=== PATIENT | male | born 1960 ===

== ENCOUNTER 2016-09-04 23:11 | Inpatient (IN) | payer MEDICAID, OTHER ==
--- NOTE | 2016-09-05 00:23 | ED PDOC ---
Arrival/HPI <Brady Parks - Last Filed: 09/05/16 04:23> - General Historian: Patient, Family <Martine Cano - Last Filed: 09/05/16 04:35> - General Chief Complaint: Chest Pain Time Seen by Provider: 09/05/16 00:15 - History of Present Illness Narrative History of Present Illness (Text): 09/05/16 00:29 Patient is a 56 year old with pmh of htn, hld presenting with sob and cp for 2 days. Patient recently immigrated from [facility]. Patient ins unable to described the chest pain. Denies radiation to the arm or back. States the sob is there regardless of his position, accompanied with dry cough. patient states he gets sob when he ambulates as well. Patient denies headache, dizziness , n/v/v. Patient denies fever or chills. Denies h/o CAD, no h/o stress tests or cardiac caths. 09/05/16 00:41 (Martine Cano) Past Medical History - Provider Review Nursing Documentation Reviewed: Yes - Travel History Have you recently traveled outside [place] w/in the past 3 mons?: Yes - Infectious Disease Hx of Infectious Diseases: None - Tetanus Immunization Tetanus Immunization: Unknown - Cardiac Hx Cardiac Disorders: Yes Hx Hypertension: Yes - Psychiatric Hx Substance Use: No (denies) <Martine Cano - Last Filed: 09/05/16 04:35> Family/Social History - Physician Review Nursing Documentation Reviewed: Yes Family/Social History: Hypertension Smoking Status: Former Smoker Hx Alcohol Use: No (denies) Hx Substance Use: No (denies) <Martine Cano - Last Filed: 09/05/16 04:35> Allergies/Home Meds <Brady Parks - Last Filed: 09/05/16 04:23> <Martine Cano - Last Filed: 09/05/16 04:35> Allergies/Adverse Reactions: Allergies No Known Allergies Allergy (Verified 09/04/16 23:27) Home Medications: Home Meds Medication Instructions Recorded Confirmed Unobtainable 09/04/16 09/04/16 Review of Systems - Review of Systems Constitutional: Fatigue. absent: Fevers, Night Sweats Eyes: absent: Vision Changes ENT: Normal Respiratory: SOB, Cough. absent: Sputum, Wheezing Cardiovascular: Chest Pain, Palpitations. absent: Edema, Calf Pain, Syncope Gastrointestinal: Normal. absent: Constipation, Diarrhea, Nausea, Vomiting Genitourinary Male: Normal Musculoskeletal: Normal Skin: Normal Neurological: Normal Endocrine: Normal Hemo/Lymphatic: Normal Psychiatric: Normal <Martine Cano - Last Filed: 09/05/16 04:35> Physical Exam Vital Signs Reviewed: Yes Temperature: Afebrile Blood Pressure: Hypertensive Pulse: Tachycardic Respiratory Rate: Normal Appearance: Positive for: Non-Toxic, Comfortable, Ill-Appearing Pain Distress: Mild Mental Status: Positive for: Alert and Oriented X 3 - Systems Exam Head: Present: Atraumatic, Normocephalic Pupils: Present: PERRL Extroacular Muscles: Present: EOMI Conjunctiva: Present: Normal Mouth: Present: Dry Neck: Present: Normal Range of Motion Respiratory/Chest: Present: Rales. No: Respiratory Distress, Accessory Muscle Use, Wheezes, Retracting, Rhonchi, Tachypneic, Tender to Palpation Cardiovascular: Present: Regular Rate and Rhythm, Normal S1, S2, Tachycardic, Gallop. No: Murmurs, Rub, Muffled Abdomen: Present: Normal Bowel Sounds. No: Tenderness, Distention, Rebound Upper Extremity: Present: Normal Inspection. No: Edema Lower Extremity: Present: Normal Inspection. No: Edema Neurological: Present: GCS=15 Skin: Present: Warm, Dry, Normal Color. No: Rashes Psychiatric: Present: Alert, Oriented x 3, Normal Insight, Normal Concentration <Martine Cano - Last Filed: 09/05/16 04:35> Vital Signs Temp Pulse Pulse Resp BP BP Pulse Ox 09/05/16 02:24 97.6 F 91 H 16 125/89 100 09/05/16 02:20 133/98 H 09/05/16 00:52 94 H 16 135/96 H 93 L 09/04/16 23:30 89 135/96 H 09/04/16 23:27 97.7 F 100 H 18 136/105 H 95 Medical Decision Making - Lab Interpretations I have reviewed the lab results: Yes - EKG Interpretation Interpreted by ED Physician: Yes Type: 12 lead EKG <Brady Parks - Last Filed: 09/05/16 04:23> Re-evaluation Time: 01:20 Reassessment Condition: Re-examined - Lab Interpretations I have reviewed the lab results: Yes (d-dimer of 1.81, probnp 2030) - EKG Interpretation Interpreted by ED Physician: Yes Type: 12 lead EKG <Martine Cano - Last Filed: 09/05/16 04:35> ED Course and Treatment: Impression: Pt seen and evaluated with certified ophthalmic medical technician. Pt, whose past medical history includes hypertension and hyperlipidemia, presented for shortness of breath, dry cough, and chest pain for 2 days. Pt reports he recently immigrated from the [place]. Aware and agree with HPI, clinical findings, plan, and management. Plan: -- EKG -- CXR -- Labs, cardiac enzymes, BNP, TSH, D-dimer -- Urinalysis -- Aspirin -- Reassess and disposition (Brady Parks) 09/05/16 00:47 Patient is a 56 year old with pmh of htn, hld presenting with sob and cp for 2 days. Differentials include - ACS, uncontrolled hypertension, sepsis, chf , PE Plan: will obtain cbc, cmp, d-dimer, tsh, chest x-ray, ekg will give asa and reevaluate discussed with Dr Parks. 09/05/16 00:48 D-dimer of 1.[address] angio to rule out PE. Pro bnp of 2030, with curly b line on chest x-ray, will give stat dose 40 mg ivp lasix. will reevaluate and dispo. 09/05/16 02:18 09/05/16 02:20 Patient reexamined, reports he is feeling much better after the lasix. CTPE is inconclusive for PE. Will give 25 mg po of Lopressor for tachycardia. 09/05/16 04:30 Dr Parks spoke to Dr Hill and the certified ophthalmic medical technician. Patient to be admitted for chf, and chest pain. (Martine Cano) - Lab Interpretations Lab Results: 09/04/16 22:48 09/04/16 22:48 Lab Results 09/05/16 02:04: Urine Color Yellow, Urine Appearance Sl cloudy, Urine pH 6.0, Ur Specific Blue >= 1.030, Urine Protein Trace H, Urine Glucose (UA) Negative , Urine Ketones Negative, Urine Blood Trace-lysed H, Urine Nitrate Negative, Urine Bilirubin Negative, Urine Urobilinogen 0.2, Ur Leukocyte Esterase Negative , Urine RBC 0 - 2, Urine WBC 0 - 2, Ur Epithelial Cells 0 - 2 09/04/16 22:48: TSH 3rd Generation 1.83 09/04/16 22:48: D-Dimer, Quantitative 1.81 H 09/04/16 22:48: Sodium 137, Potassium 4.1, Chloride 107, Carbon Dioxide 21, Anion Gap 13, BUN 26 H, Creatinine 1.1, Est GFR ( Amer) > 60, Est GFR ( Non-Af Amer) > 60, Random Glucose 101, Calcium 8.8, Total Bilirubin 0.9, AST 252 H, ALT 209 H, Alkaline Phosphatase 88, Lactate Dehydrogenase 1137 H, Total Creatine Kinase 986 H, CK-MB (CK-2) 2.9, CK-MB (CK-2) % Cancelled, Troponin I 0.02, NT-Pro-B Natriuret Pep 2030 H, Total Protein 6.2, Albumin 3.5, Globulin 2.7, Albumin/Globulin Ratio 1.3 09/04/16 22:48: WBC 7.6, RBC 4.27, Hgb 13.9 L, Hct 40.1 L, MCV 93.9, MCH 32.6, MCHC 34.7, RDW 13.0, Plt Count 245, MPV 11.5 H, Gran % 59.3, Lymph % (Auto) 31.8 , Wolfe % (Auto) 6.4 H, Eos % (Auto) 2.1, Baso % (Auto) 0.4, Gran # 4.48, Lymph # 2.4, Wolfe # 0.5, Eos # 0.2, Baso # 0.03 - RAD Interpretation Radiology Orders: 09/05/16 00:16 CHEST PORTABLE [RAD] Stat 09/05/16 01:51 ANGIO CHEST PE PROTOCOL [CT] Stat - EKG Interpretation EKG Interpretation (Text): 09/05/16 04:33 NSR with HR of 95 bmp, occasional pvcs, LVH, Q waves in leads II, III, AVF, ca/t r/o inferior infarct. (Martine Cano) - Medication Orders Current Medication Orders: Acetaminophen (Tylenol 325mg Tab) 650 mg PO Q6H PRN PRN Reason: Fever >100.4 F Atorvastatin Calcium (Lipitor) 40 mg PO DAILY NICOLE Famotidine (Pepcid) 20 mg PO BID NICOLE Ibuprofen (Motrin Tab) 600 mg PO Q6H PRN PRN Reason: Pain, Mild (1-3) Lisinopril (Zestril) 5 mg PO DAILY NICOLE Metoprolol Tartrate (Lopressor) 25 mg PO BID NICOLE Discontinued Medications Aspirin (Aspirin Chewable) 81 mg PO STAT STA Stop: 09/05/16 00:19 Last Admin: 09/05/16 00:52 Dose: 81 mg Furosemide (Lasix) 40 mg IVP STAT STA Stop: 09/05/16 01:52 Last Admin: 09/05/16 02:20 Dose: 40 mg Iodixanol (Visipaque 320 Mg/Ml 100 Ml) Confirm Administered Dose 100 ml IV .STK- MED ONE Stop: 09/05/16 02:15 Metoprolol Tartrate (Lopressor) 25 mg PO STAT STA Stop: 09/05/16 04:25 - PA / DISTRICT MANA[employer] / Resident Statement BRITT has reviewed & agrees with the documentation as recorded. BRITT has examined the patient and agrees with the treatment plan. <Brady Parks - Last Filed: 09/05/16 04:23> Disposition/Present on Arrival - Present on Arrival Any Indicators Present on Arrival: No History of DVT/PE: No History of Uncontrolled Diabetes: No Urinary Catheter: No History of Decub. Ulcer: No History Surgical Site Infection Following: None - Disposition Have Diagnosis and Disposition been Completed?: Yes Disposition Time: 04:24 Patient Plan: Observation <Brady Parks - Last Filed: 09/05/16 04:23> - Present on Arrival Any Indicators Present on Arrival: No History of DVT/PE: No History of Uncontrolled Diabetes: No Urinary Catheter: No History of Decub. Ulcer: No History Surgical Site Infection Following: None <Martine Cano - Last Filed: 09/05/16 04:35> - Disposition Diagnosis: Chest pain, CHF (congestive heart failure) Disposition: HOSPITALIZED Patient Problems: Current Active Problems Problem Status Onset Chest pain Acute CHF (congestive heart failure) Acute Condition: STABLE Discharge Instructions (ExitCare): Heart Failure (ED), Chest Pain (ED)
[2016-09-05 00:30] LABS: ADD MANUAL DIFF? NO
[2016-09-05 00:40] LABS: BASO # 0.03 K/mm3 (0.0-2.0); BASO % 0.4 % (0.0-3.0); EOS # 0.2 (0.0-0.7); EOS % 2.1 % (1.5-5.0); GRAN # 4.48 (1.4-6.5); GRAN % 59.3 % (50.0-68.0); HEMATOCRIT 40.1 % (42.0-52.0); LYMPH # 2.4 (1.2-3.4); LYMPH % 31.8 % (22.0-35.0); MEAN CELL VOLUME 93.9 fL (80.0-105.0); MEAN CORPUSCULAR HEMOGLOBIN 32.6 pg (25.0-35.0); MEAN CORPUSCULAR HGB CONC 34.7 g/dl (31.0-37.0); MEAN PLATELET VOLUME 11.5 fl (7.0-11.0); MONO # 0.5 (0.1-0.6); MONO % 6.4 % (1.0-6.0); PLATELET COUNT 245 10^3/uL (120.0-450.0); WHITE BLOOD COUNT 7.6 10^3/ul (4.5-11.0)
[2016-09-05 00:48] LABS: ALB/GLOB RATIO 1.3 (1.1-1.8); ALKALINE PHOSPHATASE 88 U/L (38-133); ALT/SGPT 209 U/L (7-56); AST/SGOT 252 U/L (15-59); BILIRUBIN,TOTAL 0.9 mg/dL (0.2-1.3); BLOOD UREA NITROGEN 26 mg/dL (7-21); CALCIUM 8.8 mg/dL (8.4-10.5); CARBON DIOXIDE 21 mmol/L (21-33); CHLORIDE 107 mmol/L (98-107); GFR AFRICAN-AMERICAN > 60; GLUCOSE,RANDOM 101 mg/dL (70-110); POTASSIUM 4.1 mmol/L (3.6-5.0); SODIUM 137 mmol/L (132-148); TOTAL PROTEIN 6.2 g/dL (5.8-8.3)
[2016-09-05 00:58] LABS: TROPONIN I 0.02 ng/mL
[2016-09-05] MEDS ORDERED: Iodixanol 320 MG/ML 100 ML BOTTLE IV ONE (02:14)
[2016-09-05 02:40] LABS: URINE BILIRUBIN NEGATIVE (NEGATIVE); URINE BLOOD TRACE-LYSED (NEGATIVE); URINE GLUCOSE (UA) NEGATIVE (NEGATIVE); URINE KETONE NEGATIVE (NEGATIVE); URINE LEUKOCYTE ESTERASE NEGATIVE Leu/uL (NEGATIVE); URINE PROTEIN TRACE mg/dL (<30 mg/dL); URINE UROBILINOGEN 0.2 E.U./dL (<1 E.U./dL)
[2016-09-05 02:44] LABS: URINE APPEARANCE SL CLOUDY (CLEAR); URINE COLOR YELLOW (YELLOW)
[2016-09-05 02:49] LABS: URINE EPITHELIAL CELLS 0 - 2 /hpf (0-5); URINE RBC 0 - 2 /hpf (0-2); URINE WBC 0 - 2 /hpf (0-6)
--- NOTE | 2016-09-05 04:10 | CT ---
EXAM: CT Angiography Chest With Intravenous Contrast CLINICAL HISTORY: 56 years old, male; Signs and symptoms; Shortness of breath; Additional info: SOB TECHNIQUE: Axial computed tomographic angiography images of the chest with intravenous contrast using pulmonary embolism protocol. This CT exam was performed using one or more of the following dose reduction techniques: automated exposure control, adjustment of the mA and/or kV according to patient size, and/or use of iterative reconstruction technique. MIP reconstructed images were created and reviewed. Coronal and sagittal reformatted images were created and reviewed. CONTRAST: 96 mL of VISI 320 administered intravenously. EXAM DATE/TIME: Exam ordered 09/05/2016 1:51 AM COMPARISON: DX - CHEST PORTABLE 09/05/2016 1:36:40 AM FINDINGS: Pulmonary arteries: Pulmonary arteries. No pulmonary embolism is seen to the level of the lobar pulmonary arterial branches bilaterally. The heterogeneous or decreased density of multiple segmental and subsegmental pulmonary arterial branches may reflect inadequate enhancement, or motion, flow, or partial voluming artifact rather than pulmonary emboli. In the right lower lobe pulmonary arteries, series 2 image 149, coronal series 602 image 81, there are stairstep artifacts which greatly limit evaluation, noting that there is suggestion of some luminal irregularity of some small peripheral vessels , findings which can be associated with pulmonary arterial hypertension or with a previous episode of emboli among other pathologies. Main pulmonary artery is 3.1 cm also in keeping with pulmonary arterial hypertension. Aorta: The study is performed in the pulmonary arterial phase and does not permit detailed evaluation for thoracic aortic dissection, there are no secondary findings of thoracic dissection and there is no evidence of thoracic aortic aneurysm. Lungs: There is asymmetric right slightly greater than left intralobular interstitial thickening, see for example series 4 image 42. There is bilateral groundglass opacity in the lower thorax involving the right middle lobe, right lower lobe, lingula and and left lower lobe, part of which may be related to artifacts from patient breathing as well as to possibly some air space disease. There is peribronchial cuffing on the right greater than on the left, see for example coronal image 62. Pleural space: There are small bilateral pleural effusions. There is a suggestion of fluid in the bilateral major fissures, fluid tracking in the right minor fissure. No pneumothorax. Heart: There is cardiomegaly. the left ventricle appears dilated with possibility of increased trabeculation, and there is reflux of intravenous contrast the hepatic veins which is a finding associated with right heart failure although noting that there is no evidence of right ventricular dilatation. This may be related to injection parameters. No significant pericardial effusion. Mediastinum: Air in the esophagus in keeping with reflux. Small hiatus hernia. Bones/joints: Probable vertebral hemangioma, no evidence of acute fracture. No dislocation. Soft tissues: Unremarkable. Lymph nodes: There is mediastinal adenopathy, see for example series 2 image 81 and adjacent, with left para-aortic nodes up to 13 mm short axis. Favor that there are also AP window region nodes. Right paratracheal nodes also appearing prominent. Kidneys and ureters: Upper abdomen shows perinephric stranding, please correlate for infection. Intraperitoneal space: Other findings: No previous CTs for comparison, if available please compare on site. IMPRESSION: Pulmonary arterial hypertension and cardiomegaly. Adenopathy. Bilateral pathology, right somewhat greater than left groundglass opacity and interstitial thickening, these are nonspecific findings with a broad differential. Please note that lung disease greatly limits evaluation for small nodules at this time. Within limits of the examination, no large or central embolus , noting limitations and possibility of some chronic pathology in the more peripheral vessels. Other as above. No previous CTs for comparison are available at this time, please compare on site.
--- NOTE | 2016-09-05 04:53 | CP.PCM.HP ---
Addendum entered and electronically signed by Angel Gutierrez DO 09/05/16 04:59: Anemia; new -f/u TIBC/Ferritin/B12/Folate Original Note: <Angel Gutierrez - Last Filed: 09/05/16 04:50> History of Present Illness - History of Present Illness History of Present Illness: CC: SOB This is a 56yo [place] Speaking [place] who is coming in for acute SOB. Patient states at baseline he gets extremely short of breath even just going to the bathroom, uses 2 pillows to sleep at night, and never wakes up in the middle of the night gasping for air. Patient cannot remember any of the meds he is taking and the daughter at bedside was urged to bring meds in so that we can reconcile them. The patient is complaining of a dry hacking cough for the past 2 months, and weight loss that is unintentional and night sweats. He is denying fevers/chills, ARREOLA, CP, abdominal pain, N/V/D, dysuria/freq/urg, or lower extremity swelling. Is also complaining of LES cramping/pain. PMHx: HTN, CHF unknown systolic/diastolic Meds: Unknown Social: former smoker, 1ppd/30 years, denies EtOH and illicit drugs, just moved here from [place] , retired, lives with family Surgeries: denies Allergies: denies FamHx: Denies Present on Admission - Present on Admission Any Indicators Present on Admission: No History of DVT/PE: No History of Uncontrolled Diabetes: No Urinary Catheter: No Decubitus Ulcer Present: No Past Patient History - Infectious Disease Hx of Infectious Diseases: None - Tetanus Immunizations Tetanus Immunization: Unknown - Past Social History Smoking Status: Former Smoker - CARDIAC Hx Cardiac Disorders: Yes Hx Hypertension: Yes - PSYCHIATRIC Hx Substance Use: No (denies) - SURGICAL HISTORY Hx Surgeries: No Meds Allergies/Adverse Reactions: Allergies Allergy/AdvReac Type Severity Reaction Status Date / Time No Known Allergies Allergy Verified 09/05/16 14:21 Physical Exam - Constitutional Appears: Non-toxic - Head Exam Head Exam: ATRAUMATIC - Eye Exam Eye Exam: Conjunctival injection, EOMI - ENT Exam ENT Exam: Mucous Membranes Moist - Neck Exam Neck exam: Positive for: Full Rom. Negative for: Lymphadenopathy - Respiratory Exam Respiratory Exam: Clear to Auscultation Bilateral, NORMAL BREATHING PATTERN. absent: Rales, Rhonchi, Wheezes - Cardiovascular Exam Cardiovascular Exam: REGULAR RHYTHM, RRR, +S1, +S2, Systolic Murmur Additional comments: harsh systolic murmur heard at the left sternal border 5/6 in nature - GI/Abdominal Exam GI & Abdominal Exam: Normal Bowel Sounds, Soft. absent: Tenderness - Rectal Exam Rectal Exam: Deferred - Extremities Exam Extremities exam: Positive for: full ROM, normal inspection. Negative for: calf tenderness, joint swelling, pedal edema, tenderness - Back Exam Back exam: NORMAL INSPECTION. absent: CVA tenderness (L), CVA tenderness (R) - Neurological Exam Neurological exam: Alert, Oriented x3 - Psychiatric Exam Psychiatric exam: Normal Affect, Normal Mood - Skin Skin Exam: Warm Results - Vital Signs Recent Vital Signs: Last Vital Signs Temp 97.6 F 09/05/16 02:24 Pulse 91 H 09/05/16 02:24 Resp 16 09/05/16 02:24 BP 125/89 09/05/16 02:24 Pulse Ox 100 09/05/16 02:24 - Labs Result Diagrams: 09/04/16 22:48 09/04/16 22:48 Labs: Laboratory Results - last 24 hr 09/04/16 09/04/16 09/04/16 22:48 22:48 22:48 WBC 7.6 RBC 4.27 Hgb 13.9 L Hct 40.1 L MCV 93.9 MCH 32.6 MCHC 34.7 RDW 13.0 Plt Count 245 MPV 11.5 H Gran % 59.3 Lymph % (Auto) 31.8 Jerome % (Auto) 6.4 H Eos % (Auto) 2.1 Baso % (Auto) 0.4 Gran # 4.48 Lymph # 2.4 Jerome # 0.5 Eos # 0.2 Baso # 0.03 D-Dimer, Quantitative 1.81 H Sodium 137 Potassium 4.1 Chloride 107 Carbon Dioxide 21 Anion Gap 13 BUN 26 H Creatinine 1.1 Est GFR ( Amer) > 60 Est GFR (Non-Af Amer) > 60 Random Glucose 101 Calcium 8.8 Total Bilirubin 0.9 AST 252 H ALT 209 H Alkaline Phosphatase 88 Lactate Dehydrogenase 1137 H Total Creatine Kinase 986 H CK-MB (CK-2) 2.9 CK-MB (CK-2) % Cancelled Troponin I 0.02 NT-Pro-B Natriuret Pep 2030 H Total Protein 6.2 Albumin 3.5 Globulin 2.7 Albumin/Globulin Ratio 1.3 TSH 3rd Generation Urine Color Urine Appearance Urine pH Ur Specific [place] Urine Protein Urine Glucose (UA) Urine Ketones Urine Blood Urine Nitrate Urine Bilirubin Urine Urobilinogen Ur Leukocyte Esterase Urine RBC Urine WBC Ur Epithelial Cells 09/04/16 09/05/16 22:48 02:04 WBC RBC Hgb Hct MCV MCH MCHC RDW Plt Count MPV Gran % Lymph % (Auto) Jerome % (Auto) Eos % (Auto) Baso % (Auto) Gran # Lymph # Jerome # Eos # Baso # D-Dimer, Quantitative Sodium Potassium Chloride Carbon Dioxide Anion Gap BUN Creatinine Est GFR ( Amer) Est GFR (Non-Af Amer) Random Glucose Calcium Total Bilirubin AST ALT Alkaline Phosphatase Lactate Dehydrogenase Total Creatine Kinase CK-MB (CK-2) CK-MB (CK-2) % Troponin I NT-Pro-B Natriuret Pep Total Protein Albumin Globulin Albumin/Globulin Ratio TSH 3rd Generation 1.83 Urine Color Yellow Urine Appearance Sl cloudy Urine pH 6.0 Ur Specific [place] >= 1.030 Urine Protein Trace H Urine Glucose (UA) Negative Urine Ketones Negative Urine Blood Trace-lysed H Urine Nitrate Negative Urine Bilirubin Negative Urine Urobilinogen 0.2 Ur Leukocyte Esterase Negative Urine RBC 0 - 2 Urine WBC 0 - 2 Ur Epithelial Cells 0 - 2 Assessment & Plan - Assessment and Plan (Free Text) Assessment: 56yo M admitted for acute decompensated heart failure CHF; unknown systolic/diastolic with unknown EF -Echo ordered; f/u results -Metoprolol, DIANN, Aspirin all started low dose; please reconcile meds when family brings them in -lasix 40mg IV BID for SOB; curly B lines seen on chest X-Ray; can taper when patient feels better -Cardio Consult: Idalmis; f/u recs -Telemetry Leg Pain -d dimer elevated -CTA angio negative for PE -b/l LES US ordered; f/u results HTN -start lisinopril and metoprolol -reconcile home meds when family brings them in Newly Diagnosed Interstitial Lung Disease -please refer to CT scan for full report -PRN Xopenex for now Proph Heparin SC Pepcid Regular Diet Case Discussed with Dr. Liz Gutierrez PGY1 Night Float Decision To Admit - Pt Status Changed To: Hospital Disposition Of: Observation - . Bed Request Type: Telemetry Admitting Physician: Mazin Hill <Mazin Hill - Last Filed: 09/06/16 05:16> Results - Vital Signs Recent Vital Signs: Last Vital Signs Temp 98.1 F 09/06/16 00:01 Pulse 66 09/06/16 00:01 Resp 22 09/06/16 00:01 BP 90/60 L 09/06/16 00:01 Pulse Ox 100 09/05/16 06:46 - Labs Result Diagrams: 09/05/16 08:45 09/05/16 08:45 Labs: Laboratory Results - last 24 hr 09/05/16 09/05/16 09/05/16 06:11 08:45 08:45 WBC 7.1 RBC 4.75 Hgb 15.6 Hct 44.0 MCV 92.6 MCH 32.8 MCHC 35.5 RDW 12.8 Plt Count 253 MPV 11.3 H Gran % 77.9 H Lymph % (Auto) 15.2 L Jerome % (Auto) 5.5 Eos % (Auto) 1.3 L Baso % (Auto) 0.1 Gran # 5.52 Lymph # 1.1 L Jerome # 0.4 Eos # 0.1 Baso # 0.01 PT INR APTT Sodium 140 Potassium 4.3 Chloride 103 Carbon Dioxide 28 Anion Gap 13 BUN 22 H Creatinine 1.1 Est GFR ( Amer) > 60 Est GFR (Non-Af Amer) > 60 Random Glucose 113 H Hemoglobin A1c Calcium 9.1 Magnesium Iron TIBC % Saturation Ferritin 86.5 Total Bilirubin 1.7 H AST 244 H ALT 244 H Alkaline Phosphatase 86 Total Protein 6.9 Albumin 4.0 Globulin 2.9 Albumin/Globulin Ratio 1.4 Triglycerides Cholesterol LDL Cholesterol Direct HDL Cholesterol Vitamin B12 926 Folate 14.7 Urine Color Urine Appearance Urine pH Ur Specific [place] Urine Protein Urine Glucose (UA) Urine Ketones Urine Blood Urine Nitrate Urine Bilirubin Urine Urobilinogen Ur Leukocyte Esterase Urine RBC Urine WBC Ur Epithelial Cells Urine Bacteria Urine Opiates Screen Negative Urine Methadone Screen Negative Ur Barbiturates Screen Negative Ur Phencyclidine Scrn Negative Ur Amphetamines Screen Negative U Benzodiazepines Scrn Negative U Oth Cocaine Metabols Negative U Cannabinoids Screen Negative Hepatitis A IgM Ab Hep Bs Antigen Hep B Core IgM Ab Hepatitis C Antibody 09/05/16 09/05/16 09/05/16 08:45 08:45 09:00 WBC RBC Hgb Hct MCV MCH MCHC RDW Plt Count MPV Gran % Lymph % (Auto) Jerome % (Auto) Eos % (Auto) Baso % (Auto) Gran # Lymph # Jerome # Eos # Baso # PT INR APTT Sodium Potassium Chloride Carbon Dioxide Anion Gap BUN Creatinine Est GFR ( Amer) Est GFR (Non-Af Amer) Random Glucose Hemoglobin A1c Calcium Magnesium 1.9 Iron TIBC % Saturation Ferritin Total Bilirubin AST ALT Alkaline Phosphatase Total Protein Albumin Globulin Albumin/Globulin Ratio Triglycerides 57 Cholesterol 131 LDL Cholesterol Direct 64 HDL Cholesterol 52 Vitamin B12 Folate Urine Color Urine Appearance Urine pH Ur Specific [place] Urine Protein Urine Glucose (UA) Urine Ketones Urine Blood Urine Nitrate Urine Bilirubin Urine Urobilinogen Ur Leukocyte Esterase Urine RBC Urine WBC Ur Epithelial Cells Urine Bacteria Urine Opiates Screen Urine Methadone Screen Ur Barbiturates Screen Ur Phencyclidine Scrn Ur Amphetamines Screen U Benzodiazepines Scrn U Oth Cocaine Metabols U Cannabinoids Screen Hepatitis A IgM Ab Negative Hep Bs Antigen Negative Hep B Core IgM Ab Negative Hepatitis C Antibody Negative 09/05/16 09/05/16 09/05/16 09:00 09:13 10:31 WBC RBC Hgb Hct MCV MCH MCHC RDW Plt Count MPV Gran % Lymph % (Auto) Jerome % (Auto) Eos % (Auto) Baso % (Auto) Gran # Lymph # Jerome # Eos # Baso # PT 11.2 INR 1.04 APTT 26.1 Sodium Potassium Chloride Carbon Dioxide Anion Gap BUN Creatinine Est GFR ( Amer) Est GFR (Non-Af Amer) Random Glucose Hemoglobin A1c 5.3 Calcium Magnesium Iron 128 TIBC 347 % Saturation 37 Ferritin Total Bilirubin AST ALT Alkaline Phosphatase Total Protein Albumin Globulin Albumin/Globulin Ratio Triglycerides Cholesterol LDL Cholesterol Direct HDL Cholesterol Vitamin B12 Folate Urine Color Urine Appearance Urine pH Ur Specific [place] Urine Protein Urine Glucose (UA) Urine Ketones Urine Blood Urine Nitrate Urine Bilirubin Urine Urobilinogen Ur Leukocyte Esterase Urine RBC Urine WBC Ur Epithelial Cells Urine Bacteria Urine Opiates Screen Urine Methadone Screen Ur Barbiturates Screen Ur Phencyclidine Scrn Ur Amphetamines Screen U Benzodiazepines Scrn U Oth Cocaine Metabols U Cannabinoids Screen Hepatitis A IgM Ab Hep Bs Antigen Hep B Core IgM Ab Hepatitis C Antibody 09/05/16 18:15 WBC RBC Hgb Hct MCV MCH MCHC RDW Plt Count MPV Gran % Lymph % (Auto) Jerome % (Auto) Eos % (Auto) Baso % (Auto) Gran # Lymph # Jerome # Eos # Baso # PT INR APTT Sodium Potassium Chloride Carbon Dioxide Anion Gap BUN Creatinine Est GFR ( Amer) Est GFR (Non-Af Amer) Random Glucose Hemoglobin A1c Calcium Magnesium Iron TIBC % Saturation Ferritin Total Bilirubin AST ALT Alkaline Phosphatase Total Protein Albumin Globulin Albumin/Globulin Ratio Triglycerides Cholesterol LDL Cholesterol Direct HDL Cholesterol Vitamin B12 Folate Urine Color Straw Urine Appearance Clear Urine pH 5.5 Ur Specific [place] 1.020 Urine Protein Negative Urine Glucose (UA) Negative Urine Ketones Negative Urine Blood Trace-intact H Urine Nitrate Negative Urine Bilirubin Negative Urine Urobilinogen 0.2 Ur Leukocyte Esterase Negative Urine RBC 1 - 3 Urine WBC 1 - 3 Ur Epithelial Cells 1 - 3 Urine Bacteria Few Urine Opiates Screen Urine Methadone Screen Ur Barbiturates Screen Ur Phencyclidine Scrn Ur Amphetamines Screen U Benzodiazepines Scrn U Oth Cocaine Metabols U Cannabinoids Screen Hepatitis A IgM Ab Hep Bs Antigen Hep B Core IgM Ab Hepatitis C Antibody Attending/Attestation - Attestation I have personally seen and examined this patient.: Yes I have fully participated in the care of the patient.: Yes I have reviewed all pertinent clinical information: Yes
[2016-09-05] MEDS ORDERED: Levalbuterol 1.25 MG/3 ML Inhal Soln UD IH PRN (04:58)
--- NOTE | 2016-09-05 08:51 | RAD ---
HISTORY: Shortness of breath COMPARISON: None FINDINGS: LUNGS: There is mild pulmonary venous congestion and interstitial pulmonary edema. There is linear atelectasis/ scar in the right middle lobe. PLEURA: No significant pleural effusion identified, no pneumothorax apparent. CARDIOVASCULAR: The heart is enlarged there is mild pulmonary redistribution. OSSEOUS STRUCTURES: No significant abnormalities. VISUALIZED UPPER ABDOMEN: Normal. OTHER FINDINGS: None. IMPRESSION: Findings are concerning for mild congestive heart failure.
[2016-09-05 09:12] LABS: ADD MANUAL DIFF? NO
--- NOTE | 2016-09-05 09:20 | US ---
HISTORY: Leg pain and swelling. Evaluate for DVT PHYSICIAN(S): Sourav Worthy MD. TECHNIQUE: Duplex sonography and color-flow Doppler with graded compression were used to evaluate the deep venous systems of both lower extremities. FINDINGS: The visualized deep venous systems of both lower extremities are sonographically normal and compressible. Normal wave forms and augmentation are seen. There is no sonographic evidence for deep venous thrombosis in the visualized segments of both lower extremities. IMPRESSION: No sonographic evidence for deep venous thrombosis in the visualized segments of both lower extremities.
[2016-09-05 09:25] LABS: BASO # 0.01 K/mm3 (0.0-2.0); BASO % 0.1 % (0.0-3.0); EOS # 0.1 (0.0-0.7); EOS % 1.3 % (1.5-5.0); GRAN # 5.52 (1.4-6.5); GRAN % 77.9 % (50.0-68.0); LYMPH # 1.1 (1.2-3.4); LYMPH % 15.2 % (22.0-35.0); MEAN CELL VOLUME 92.6 fL (80.0-105.0); MEAN CORPUSCULAR HEMOGLOBIN 32.8 pg (25.0-35.0); MEAN CORPUSCULAR HGB CONC 35.5 g/dl (31.0-37.0); MEAN PLATELET VOLUME 11.3 fl (7.0-11.0); MONO # 0.4 (0.1-0.6); MONO % 5.5 % (1.0-6.0); PLATELET COUNT 253 10^3/uL (120.0-450.0); RED CELL DISTRIBUTION WIDTH 12.8 % (11.5-14.5); WHITE BLOOD COUNT 7.1 10^3/ul (4.5-11.0)
[2016-09-05 09:30] LABS: CHOLESTEROL 131 mg/dL (130-200)
[2016-09-05 09:33] LABS: ALB/GLOB RATIO 1.4 (1.1-1.8); ALKALINE PHOSPHATASE 86 U/L (38-133); ALT/SGPT 244 U/L (7-56); AST/SGOT 244 U/L (15-59); BILIRUBIN,TOTAL 1.7 mg/dL (0.2-1.3); BLOOD UREA NITROGEN 22 mg/dL (7-21); CALCIUM 9.1 mg/dL (8.4-10.5); CARBON DIOXIDE 28 mmol/L (21-33); CHLORIDE 103 mmol/L (98-107); GFR AFRICAN-AMERICAN > 60; GLUCOSE,RANDOM 113 mg/dL (70-110); POTASSIUM 4.3 mmol/L (3.6-5.0); SODIUM 140 mmol/L (132-148); TOTAL PROTEIN 6.9 g/dL (5.8-8.3)
[2016-09-05 09:37] LABS: IRON 128 ug/dL (45-180)
[2016-09-05 10:46] LABS: INR 1.04 (0.93-1.08); PARTIAL THROMBOPLASTIN TIME 26.1 Seconds (23.7-30.8)
--- NOTE | 2016-09-05 15:42 | US ---
PROCEDURE: Lower extremity ROBE exam HISTORY: Peripheral vascular disease with pain and claudication. Previous smoker. PHYSICIAN(S): Sourav Worthy MD. FINDINGS: The resting ROBE's are normal: right, 1.19and left, 1.18. The brachial systolic pressures are symmetric. The high thigh pressures and waveforms are relatively normal. The calf PVR waveforms augment normally. No significant gradients are noted across the thighs. The ankle and metatarsal waveforms are relatively normal and symmetric. No significant pressure gradients are noted across the lower legs. IMPRESSION: 1. Normal ROBE and PVR examination at rest.
--- NOTE | 2016-09-05 16:18 | CARD ---
APPROVED REPORT EXAM: Two-dimensional and M-mode echocardiogram with Doppler and color Doppler. INDICATION Congestive Heart Failure 2D DIMENSIONS Left Atrium (2D)5.1 (1.6-4.0cm)IVSd1.3 (0.7-1.1cm) LVDd6.1 (3.9-5.9cm)PWd1.3 (0.7-1.1cm) LVDs5.6 (2.5-4.0cm)FS (%) 7.4 % LVEF (%)16.1 (>50%) M-Mode DIMENSIONS Aortic Root3.10 (2.2-3.7cm)Aortic Cusp Exc.1.90 (1.5-2.0cm) Aortic Valve AoV Peak Ntiabsyu015.0cm/Divya Peak GR.4mmHg Mitral Valve MV E Iltmnduj34.8cm/sMV A Apcnxmvn69.1cm/sE/A ratio3.3 TDI Lateral E' Peak V10.10cm/sMedial E' Peak V4.97cm/sE/Lateral E'9.1 E/Medial E'18.5 Pulmonary Valve PV Peak Kywwgnih44.4cm/sPV Peak Grad.1mmHg Tricuspid Valve TR Peak Bvouulgo351ya/sRAP [id number] Peak Gr.83mmHg [id number] LEFT VENTRICLE The Left Ventricle is moderately dilated. There is mild concentric left ventricular hypertrophy. The systolic function is severely impaired. No left ventricle thrombus noted on this study. RIGHT VENTRICLE The right ventricle is moderately dilated. RV Systolic function is severely reduced. ATRIA The left atrium is moderately dilated. The right atrium is moderately dilated. AORTIC VALVE The aortic valve is normal in structure. MITRAL VALVE Mitral regurgitation is moderate. TRICUSPID VALVE There is severe tricuspid regurgitation. There is severe pulmonary hypertension. GREAT VESSELS The aortic root is normal in size. <Conclusion> 4 chamber dilatation with sever biventricular failure Mitral regurgitation is moderate. There is severe tricuspid regurgitation. There is severe pulmonary hypertension.
[2016-09-05 16:41] VITALS: BMI 22.1
[2016-09-05] MEDS ORDERED: Pneumococcal 23-Valent Vaccine IM ONE (16:41)
--- NOTE | 2016-09-05 17:14 | CON ---
DATE: 09/05/2016 REASON FOR CONSULTATION: Shortness of breath. HISTORY OF PRESENT ILLNESS: The patient is a 56-year-old [place] male, who is unaware of any prior cardiac history, who presented because of shortness of breath and orthopnea. The patient denies any retrosternal chest pain. The patient is experiencing cough and weight loss for the past few months. SOCIAL HISTORY: The patient is a former smoker. He is an occasional drinker. MEDICATIONS: Heparin 5000 units subcutaneous twice a day, Lasix 40 mg intravenous twice a day, Lipit or 40 mg once a day, Lopressor 25 mg twice a day, Xopenex inhaler q. 4 hours p.r.n., Zestril 5 mg jaiden ly. REVIEW OF SYSTEMS: No nausea or vomiting, no fever or chills. PHYSICAL EXAMINATION: GENERAL: The patient is a middle-aged male who does not appear to be in any distress. VITAL SIGNS: Blood pressure 123/89, heart rate 65, temperature 97.8, respiration 18. HEENT: Normocephalic. NECK: No JVD. CHEST: Diffuse bilateral rhonchi. HEART: S1, S2 regular. ABDOMEN: Soft. EXTREMITIES: No edema. LABORATORY DATA: CBC: WBC 7.1, hemoglobin and hematocrit 15.6 and 44, platelet count 253,000. SMA- 7: Sodium 140, potassium 4.3, chloride 103, CO2 28, glucose 115, BUN 22, creatinine 1.1, total bilir ubin is 1.7, AST and ALT are 244, both of them and proBNP is 2030. D-dimer is 1.81, slightly elevate d. Urine drug screen is negative. Chest CT scan impression: Pulmonary arterial hypertension and car diomegaly. Bilateral pathology, right somewhat greater than left, and ground glass opacities and int erstitial thickening. These are nonspecific findings differential diagnosis Chest x-ray reveal ed cardiomegaly with prominent central vasculature and mild CHF. EKG revealed sinus rhythm with occa sional PVCs and voltage criteria for LVH. ASSESSMENT: 1. Exacerbation of congestive heart failure. 2. Hypertension. 3. Rule out bilateral pneumonia or interstitial lung disease. RECOMMENDATIONS: Continue subcutaneous heparin 5000 units twice a day, Lasix 40 mg intravenous twice a day, Lipitor at 40 mg once a day, Lopressor 25 mg twice a day, Zestril at 5 mg daily. I will revi ew the echocardiographic study performed today. Jeronimo Warner MD cc: [id number] TT: 09/05/2016 17:13:13 Confirmation # [id number] Dictation # [id number]
[2016-09-05 17:35] LABS: FOLATE 14.7 ng/mL
[2016-09-05 18:34] LABS: PH,URINE 5.5 (4.7-8.0); URINE BILIRUBIN NEGATIVE (NEGATIVE); URINE BLOOD TRACE-INTACT (NEGATIVE); URINE GLUCOSE (UA) NEGATIVE (NEGATIVE); URINE KETONE NEGATIVE (NEGATIVE); URINE LEUKOCYTE ESTERASE NEGATIVE Leu/uL (NEGATIVE); URINE PROTEIN NEGATIVE mg/dL (<30 mg/dL); URINE UROBILINOGEN 0.2 E.U./dL (<1 E.U./dL)
[2016-09-05 18:44] LABS: URINE COLOR STRAW (YELLOW)
[2016-09-05 18:45] LABS: URINE APPEARANCE CLEAR (CLEAR)
[2016-09-05 18:46] LABS: URINE BACTERIA FEW (NEG)
[2016-09-05] MEDS: POLYETHYLENE GLYCOL 3350 17 GM/Dose PACKET PO SCH (19:06)
--- NOTE | 2016-09-05 23:12 | CARD ---
APPROVED REPORT EKG Measurement Heart [id number] <Conclusion> Sinus rhythm with occasional premature ventricular complexes Moderate voltage criteria for LVH, may be normal variant Cannot rule out Inferior infarct, age undetermined Abnormal ECG
[2016-09-06 07:23] LABS: ADD MANUAL DIFF? NO
[2016-09-06 07:26] LABS: BASO # 0.03 K/mm3 (0.0-2.0); BASO % 0.4 % (0.0-3.0); EOS # 0.2 (0.0-0.7); EOS % 2.9 % (1.5-5.0); GRAN # 4.82 (1.4-6.5); GRAN % 59.3 % (50.0-68.0); HEMATOCRIT 48.1 % (42.0-52.0); LYMPH # 2.5 (1.2-3.4); LYMPH % 30.2 % (22.0-35.0); MEAN CELL VOLUME 92.7 fL (80.0-105.0); MEAN CORPUSCULAR HEMOGLOBIN 32.6 pg (25.0-35.0); MEAN CORPUSCULAR HGB CONC 35.1 g/dl (31.0-37.0); MEAN PLATELET VOLUME 11.3 fl (7.0-11.0); MONO # 0.6 (0.1-0.6); MONO % 7.2 % (1.0-6.0); PLATELET COUNT 249 10^3/uL (120.0-450.0); WHITE BLOOD COUNT 8.1 10^3/ul (4.5-11.0)
[2016-09-06 07:52] LABS: ALB/GLOB RATIO 1.3 (1.1-1.8); ALKALINE PHOSPHATASE 70 U/L (38-133); ALT/SGPT 277 U/L (7-56); AST/SGOT 236 U/L (15-59); BILIRUBIN,TOTAL 1.4 mg/dL (0.2-1.3); BLOOD UREA NITROGEN 26 mg/dL (7-21); CALCIUM 9.1 mg/dL (8.4-10.5); CARBON DIOXIDE 31 mmol/L (21-33); CHLORIDE 99 mmol/L (98-107); GFR AFRICAN-AMERICAN > 60; GLUCOSE,RANDOM 102 mg/dL (70-110); SODIUM 140 mmol/L (132-148); TOTAL PROTEIN 7.2 g/dL (5.8-8.3)
[2016-09-06] MEDS ORDERED: Enoxaparin 60 mg Syringe SC SCH (09:30)
--- NOTE | 2016-09-06 10:04 | PN ---
DATE: 09/06/2016 SUBJECTIVE: The patient's shortness of breath has improved. He denies any chest pain. PHYSICAL EXAMINATION: VITAL SIGNS: Blood pressure 110/64, heart rate 67, temperature 98.4, respirations 22. HEENT: Normocephalic. NECK: No JVD. CHEST: Minimal basal rhonchi. HEART: S1, S2 regular. EXTREMITIES: No edema. LABORATORIES: Hemoglobin and hematocrit 16.9 and 48.1, white count and platelet count are within nor mal limits. Today's SMA-7 is within normal limits except for BUN of 26. Hepatitis profile is within normal limits. Arterial Doppler of the lower extremities revealed normal ROBE and PVR present. Thes e reviewed examination at rest. Venous Doppler of lower extremity, no sonographic evidence of DVT. Echocardiographic study revealed 14 with biventricular failure, moderate mitral insuffici ency, severe pulmonary hypertension. ASSESSMENT: 1. Biventricular failure. 2. Severe pulmonary hypertension. 3. Elevated liver enzymes. RECOMMENDATIONS: Continue aspirin 81 mg once a day, Lasix at 40 mg intravenous twice a day, Zestril 5 mg once a day. Start Aldactone 12.5 mg once a day. Discontinue heparin and start therapeutic subc utaneous Lovenox. Cardiac catheterization is indicated and was discussed with the patient via [facility] and will discuss with the medical team. Social service will be also consulted to help the patient with future medication demand. Jeronimo Warner MD cc: [id number] TT: 09/06/2016 10:03:45 Confirmation # [id number] Dictation # [id number]
[2016-09-06] MEDS: POLYETHYLENE GLYCOL 3350 17 GM/Dose PACKET PO SCH (10:10)
--- NOTE | 2016-09-06 12:46 | US ---
HISTORY: elevated LFT COMPARISON: None. TECHNIQUE: Sonographic evaluation of the abdomen. FINDINGS: LIVER: Measures cm. Normal echogenicity of the liver parenchyma. No mass. No intrahepatic bile duct dilatation. GALLBLADDER: Unremarkable. No gallstones. COMMON BILE DUCT: Measures mm. No stones. No dilatation. PANCREAS: Unremarkable as visualized. No mass. No ductal dilatation. RIGHT KIDNEY: Measures cm. Normal echogenicity. No calculus, mass, or hydronephrosis. LEFT KIDNEY: Measures cm. Normal echogenicity. No calculus, mass, or hydronephrosis. 2 centimeter cyst in the lower pole the right kidney. SPLEEN: Normal in size and contour. No mass. AORTA: No aneurysmal dilatation. IVC: Unremarkable. OTHER FINDINGS: None. IMPRESSION: 2 centimeter right renal cyst.
--- NOTE | 2016-09-06 15:29 | CP.PCM.PN ---
<Sopihe Lester - Last Filed: 09/08/16 07:26> Subjective - Date & Time of Evaluation Date of Evaluation: 09/06/16 Time of Evaluation: 11:00 - Subjective Subjective: Pt was seen and examined at bedside. No acute complaints at this time. No acute or adverse events overnight as per nursing staff. Objective - Vital Signs/Intake and Output Vital Signs (last 24 hours): Temp Pulse Resp BP Pulse Ox 97.5 F L 70 18 114/81 99 09/06/16 11:56 09/06/16 14:00 09/06/16 11:56 09/06/16 11:56 09/06/16 06:00 Intake and Output: 09/06/16 09/06/16 06:59 18:59 Intake Total 360 300 Balance 360 300 - Medications Medications: Current Medications Acetaminophen (Tylenol 325mg Tab) 650 mg PO Q6H PRN PRN Reason: Fever >100.4 F Aspirin (Ecotrin) 81 mg PO DAILY [facility] Last Admin: 09/06/16 10:07 Dose: 81 mg Enoxaparin Sodium (Lovenox) 60 mg SC Q12H [facility] PRN Reason: Protocol Famotidine (Pepcid) 20 mg PO BID [facility] Last Admin: 09/06/16 10:08 Dose: 20 mg Furosemide (Lasix) 40 mg IVP Q12H [facility] Last Admin: 09/06/16 10:11 Dose: 40 mg Levalbuterol HCl (Xopenex) 1.25 mg IH Q4H PRN PRN Reason: SOB Lisinopril (Zestril) 5 mg PO DAILY [facility] Last Admin: 09/06/16 10:07 Dose: 5 mg Metoprolol Tartrate (Lopressor) 25 mg PO BID [facility] Last Admin: 09/06/16 10:09 Dose: 25 mg Polyethylene Glycol (Miralax) 17 gm PO DAILY [facility] Last Admin: 09/06/16 10:10 Dose: 17 gm Spironolactone (Aldactone) 12.5 mg PO DAILY [facility] Last Admin: 09/06/16 10:05 Dose: 12.5 mg - Labs Labs: 09/06/16 07:00 09/06/16 07:00 PT 11.2 Seconds (9.9-11.8) 09/05/16 10:31 INR 1.04 (0.93-1.08) 09/05/16 10:31 APTT 26.1 Seconds (23.7-30.8) 09/05/16 10:31 - Constitutional Appears: Well, No Acute Distress - Head Exam Head Exam: ATRAUMATIC, NORMAL INSPECTION, NORMOCEPHALIC - Eye Exam Eye Exam: EOMI, Normal appearance, PERRL Pupil Exam: NORMAL ACCOMODATION, PERRL - ENT Exam ENT Exam: Mucous Membranes Moist, Normal Exam - Neck Exam Neck Exam: Full ROM, Normal Inspection. absent: Lymphadenopathy - Respiratory Exam Respiratory Exam: Clear to Ausculation Bilateral, NORMAL BREATHING PATTERN - Cardiovascular Exam Cardiovascular Exam: REGULAR RHYTHM, +S1, +S2. absent: Murmur - GI/Abdominal Exam GI & Abdominal Exam: Soft, Normal Bowel Sounds. absent: Tenderness - Extremities Exam Extremities Exam: Full ROM, Normal Capillary Refill, Normal Inspection. absent : Joint Swelling, Pedal Edema - Back Exam Back Exam: NORMAL INSPECTION - Neurological Exam Neurological Exam: Alert, Awake, CN II-XII Intact, Normal Gait, Oriented x3 - Psychiatric Exam Psychiatric exam: Normal Affect, Normal Mood - Skin Skin Exam: Dry, Intact, Normal Color, Warm Assessment and Plan - Assessment and Plan (Free Text) Assessment: 56 yrs old male with Biventricular failure, severe systolic dysfunction on Echo , EF is 16%.Patient also has elevated LFT likely due to congested liver, improving. 1.Acute on chronic Systolic CHF exacerbation Improving with diuresis, Renal functions are mildly worsen, creatinin increased to 1.5, will decrease lasix to 20 mg iv bid continue DIANN and aldactone Cardiology is following, plan for possible cardiac catherization to rule out ischemic Cardiomyopathy Cardiology to decided about AICD 2.Elevated LFT due to congested liver Improving with diuresis will monitor Statin and nsaids are on hold due to elevated LFT 3.DVT Prohylaxis Patient is on full anticoagulation, troponins are normal, no DVT or PE, will switch to DVT Prophylaxis <Margarette STEWARD,Maryallouezguy - Last Filed: 09/08/16 11:52> Objective - Vital Signs/Intake and Output Vital Signs (last 24 hours): Temp Pulse Resp BP Pulse Ox 97.7 F 74 18 97/62 L 99 09/07/16 23:44 09/08/16 10:00 09/07/16 23:44 09/08/16 09:59 09/07/16 23:44 Intake and Output: 09/08/16 09/08/16 06:59 18:59 Intake Total 360 Balance 360 - Medications Medications: Current Medications Aspirin (Ecotrin) 81 mg PO DAILY [facility] Last Admin: 09/08/16 09:57 Dose: 81 mg Enoxaparin Sodium (Lovenox) 40 mg SC DAILY [facility] PRN Reason: Protocol Last Admin: 09/08/16 09:58 Dose: 40 mg Famotidine (Pepcid) 20 mg PO BID [facility] Last Admin: 09/08/16 09:58 Dose: 20 mg Furosemide (Lasix) 20 mg IVP Q12H [facility] Last Admin: 09/08/16 08:10 Dose: Not Given Levalbuterol HCl (Xopenex) 1.25 mg IH Q4H PRN PRN Reason: SOB Lisinopril (Zestril) 5 mg PO DAILY [facility] Last Admin: 09/08/16 09:59 Dose: Not Given Metoprolol Tartrate (Lopressor) 25 mg PO BID [facility] Last Admin: 09/08/16 09:59 Dose: Not Given Polyethylene Glycol (Miralax) 17 gm PO DAILY [facility] Last Admin: 09/08/16 09:58 Dose: 17 gm Spironolactone (Aldactone) 12.5 mg PO DAILY [facility] Last Admin: 09/08/16 09:59 Dose: Not Given - Labs Labs: 09/08/16 07:47 09/08/16 07:45 PT 11.2 Seconds (9.9-11.8) 09/05/16 10:31 INR 1.04 (0.93-1.08) 09/05/16 10:31 APTT 26.1 Seconds (23.7-30.8) 09/05/16 10:31 Attending/Attestation - Attestation I have personally seen and examined this patient.: Yes I have fully participated in the care of the patient.: Yes I have reviewed all pertinent clinical information, including history, physical exam and plan: Yes Notes (Text): Patient was seen and examined with medical office scheduler .Agreed with resident assessment and plan. Management plan was discussed in detail with patient Education was provided.
[2016-09-06] MEDS: Enoxaparin 60 mg Syringe SC SCH (17:05)
[2016-09-07] MEDS: Enoxaparin 60 mg Syringe SC SCH ×2 (05:30→17:25)
[2016-09-07 07:49] LABS: ADD MANUAL DIFF? NO
[2016-09-07 07:53] LABS: BASO # 0.02 K/mm3 (0.0-2.0); BASO % 0.3 % (0.0-3.0); EOS # 0.2 (0.0-0.7); EOS % 2.5 % (1.5-5.0); GRAN # 3.85 (1.4-6.5); GRAN % 57.5 % (50.0-68.0); HEMATOCRIT 47.1 % (42.0-52.0); LYMPH # 2.1 (1.2-3.4); LYMPH % 30.6 % (22.0-35.0); MEAN CELL VOLUME 92.5 fL (80.0-105.0); MEAN CORPUSCULAR HEMOGLOBIN 32.6 pg (25.0-35.0); MEAN CORPUSCULAR HGB CONC 35.2 g/dl (31.0-37.0); MEAN PLATELET VOLUME 11.5 fl (7.0-11.0); MONO # 0.6 (0.1-0.6); MONO % 9.1 % (1.0-6.0); PLATELET COUNT 257 10^3/uL (120.0-450.0); WHITE BLOOD COUNT 6.7 10^3/ul (4.5-11.0)
[2016-09-07 08:09] LABS: ALB/GLOB RATIO 1.4 (1.1-1.8); BILIRUBIN,TOTAL 0.7 mg/dL (0.2-1.3); CALCIUM 9.2 mg/dL (8.4-10.5); TOTAL PROTEIN 6.6 g/dL (5.8-8.3)
[2016-09-07] MEDS: POLYETHYLENE GLYCOL 3350 17 GM/Dose PACKET PO SCH (09:45)
--- NOTE | 2016-09-07 10:05 | CP.PCM.PN ---
Subjective - Date & Time of Evaluation Date of Evaluation: 09/07/16 Time of Evaluation: 08:30 - Subjective Subjective: Patient was seen and examined with certified medical technician .History was taken with the help of carpenter mate. Patient is feeling better,dyspnea is improving, had good diuresis yesterday.He denies chest pain, palpitation or dyspnea. Objective - Vital Signs/Intake and Output Vital Signs (last 24 hours): Temp Pulse Resp BP Pulse Ox 97.7 F 56 L 18 102/69 95 09/07/16 05:46 09/07/16 05:46 09/07/16 05:46 09/07/16 05:46 09/07/16 05:46 Intake and Output: 09/07/16 09/07/16 06:59 18:59 Intake Total 0 Output Total 0 Balance 0 - Medications Medications: Current Medications Acetaminophen (Tylenol 325mg Tab) 650 mg PO Q6H PRN PRN Reason: Fever >100.4 F Aspirin (Ecotrin) 81 mg PO DAILY [facility] Last Admin: 09/06/16 10:07 Dose: 81 mg Enoxaparin Sodium (Lovenox) 60 mg SC Q12H [facility] PRN Reason: Protocol Last Admin: 09/07/16 05:30 Dose: 60 mg Famotidine (Pepcid) 20 mg PO BID [facility] Last Admin: 09/06/16 17:04 Dose: 20 mg Furosemide (Lasix) 40 mg IVP Q12H [facility] Last Admin: 09/06/16 21:18 Dose: 40 mg Levalbuterol HCl (Xopenex) 1.25 mg IH Q4H PRN PRN Reason: SOB Lisinopril (Zestril) 5 mg PO DAILY [facility] Last Admin: 09/06/16 10:07 Dose: 5 mg Metoprolol Tartrate (Lopressor) 25 mg PO BID [facility] Last Admin: 09/06/16 17:05 Dose: 25 mg Polyethylene Glycol (Miralax) 17 gm PO DAILY [facility] Last Admin: 09/06/16 10:10 Dose: 17 gm Spironolactone (Aldactone) 12.5 mg PO DAILY [facility] Last Admin: 09/06/16 10:05 Dose: 12.5 mg - Labs Labs: 09/07/16 07:46 09/07/16 07:46 PT 11.2 Seconds (9.9-11.8) 09/05/16 10:31 INR 1.04 (0.93-1.08) 09/05/16 10:31 APTT 26.1 Seconds (23.7-30.8) 09/05/16 10:31 - Constitutional Appears: Non-toxic, No Acute Distress - Head Exam Head Exam: ATRAUMATIC, NORMAL INSPECTION - Neck Exam Neck Exam: Full ROM, Normal Inspection Additional comments: jvp not raised - Respiratory Exam Respiratory Exam: NORMAL BREATHING PATTERN Additional comments: few fine basal crackle - GI/Abdominal Exam GI & Abdominal Exam: Soft Additional comments: no tenderness, no guardening. - Extremities Exam Additional comments: traced edema, no cynosis or clubbing - Neurological Exam Neurological Exam: Alert, Awake, CN II-XII Intact Additional comments: non focal Assessment and Plan - Assessment and Plan (Free Text) Plan: 56 yrs old male with Biventricular failure, severe systolic dysfunction on Echo , EF is 16%.Patient also has elevated LFT likely due to congested liver, improving. 1.Acute on chronic Systolic CHF exacerbation Improving with diuresis, Renal functions are mildly worsen, creatinin increased to 1.5, will decrease lasix to 20 mg iv bid continue DIANN and aldactone Cardiology is following, plan for possible cardiac catherization to rule out ischemic Cardiomyopathy Cardiology to decided about AICD 2.Elevated LFT due to congested liver Improving with diuresis will monitor Statin are on hold due to elevated LFT 3.DVT Prohylaxis Patient is on full anticoagulation, troponins are normal, no DVT or PE, will switch to DVT Prophylaxis Management plan was discussed in detail with patient Education was provided.
--- NOTE | 2016-09-07 14:51 | PN ---
DATE: 09/07/2016 The patient's shortness of breath has improved. PHYSICAL EXAMINATION: VITAL SIGNS: Blood pressure 98/71, heart rate 84, temperature 97, respirations 17. HEENT: Normocephalic. CHEST: Clear. HEART: S1, S2 regular. EXTREMITIES: No edema. LABORATORIES: Hemoglobin and hematocrit, white count and platelet count are within normal limits. T aleksander's BUN and creatinine are 33 and 1.5. Rest of SMA-7 is within normal limits. Abdominal ultrasou nd 2 cm right renal cyst. ASSESSMENT: 1. Biventricular failure. 2. Severe pulmonary hypertension. 3. Elevated liver enzymes. RECOMMENDATIONS: Continue Aldactone at 12.5 mg once a day, Lasix 20 mg intravenously twice a day, as pirin 81 mg once a day, therapeutic subcutaneous Lovenox at 60 mg twice a day, Zestril at 5 mg once a day. I recommend performing left heart cardiac catheterization hopefully at [facility] as the facility accepted transfer and the patient agreed for the procedure. Jeronimo Warner MD cc: [id number] TT: 09/07/2016 14:50:48 Confirmation # [id number] Dictation # [id number]
[2016-09-08] MEDS: Enoxaparin 60 mg Syringe SC SCH (07:14)
[2016-09-08 07:49] LABS: ADD MANUAL DIFF? NO
[2016-09-08 08:24] LABS: BASO # 0.03 K/mm3 (0.0-2.0); BASO % 0.5 % (0.0-3.0); EOS # 0.1 (0.0-0.7); EOS % 2.3 % (1.5-5.0); GRAN # 3.09 (1.4-6.5); GRAN % 51.5 % (50.0-68.0); HEMATOCRIT 47.3 % (42.0-52.0); LYMPH # 2.3 (1.2-3.4); LYMPH % 37.4 % (22.0-35.0); MEAN CELL VOLUME 93.1 fL (80.0-105.0); MEAN CORPUSCULAR HEMOGLOBIN 32.1 pg (25.0-35.0); MEAN CORPUSCULAR HGB CONC 34.5 g/dl (31.0-37.0); MEAN PLATELET VOLUME 11.4 fl (7.0-11.0); MONO # 0.5 (0.1-0.6); MONO % 8.3 % (1.0-6.0); PLATELET COUNT 270 10^3/uL (120.0-450.0); RED CELL DISTRIBUTION WIDTH 12.9 % (11.5-14.5)
[2016-09-08 08:55] LABS: ALB/GLOB RATIO 1.3 (1.1-1.8); ALKALINE PHOSPHATASE 64 U/L (38-133); ALT/SGPT 158 U/L (7-56); AST/SGOT 82 U/L (15-59); BILIRUBIN,TOTAL 0.6 mg/dL (0.2-1.3); BLOOD UREA NITROGEN 29 mg/dL (7-21); CALCIUM 8.8 mg/dL (8.4-10.5); CARBON DIOXIDE 29 mmol/L (21-33); CHLORIDE 100 mmol/L (98-107); GFR AFRICAN-AMERICAN > 60; GLUCOSE,RANDOM 86 mg/dL (70-110); POTASSIUM 3.9 mmol/L (3.6-5.0); SODIUM 137 mmol/L (132-148); TOTAL PROTEIN 6.6 g/dL (5.8-8.3)
[2016-09-08] MEDS: POLYETHYLENE GLYCOL 3350 17 GM/Dose PACKET PO SCH (09:58)
[2016-09-08] MEDS: Enoxaparin 40 mg Syringe SC SCH (09:58)
--- NOTE | 2016-09-08 12:37 | CP.PCM.PN ---
<Sophie Lester - Last Filed: 09/08/16 12:35> Subjective - Date & Time of Evaluation Date of Evaluation: 09/08/16 Time of Evaluation: 08:20 - Subjective Subjective: Pt was seen and examined at bedside. No acute complaints at this time. No acute or adverse events overnight as per nursing staff. Pt tolerating diet and moving bowel and bladder regularly. Objective - Vital Signs/Intake and Output Vital Signs (last 24 hours): Temp Pulse Resp BP Pulse Ox 97.7 F 74 18 97/62 L 99 09/07/16 23:44 09/08/16 10:00 09/07/16 23:44 09/08/16 09:59 09/07/16 23:44 Intake and Output: 09/08/16 09/08/16 06:59 18:59 Intake Total 360 Balance 360 - Medications Medications: Current Medications Aspirin (Ecotrin) 81 mg PO DAILY [facility] Last Admin: 09/08/16 09:57 Dose: 81 mg Enoxaparin Sodium (Lovenox) 40 mg SC DAILY [facility] PRN Reason: Protocol Last Admin: 09/08/16 09:58 Dose: 40 mg Famotidine (Pepcid) 20 mg PO BID [facility] Last Admin: 09/08/16 09:58 Dose: 20 mg Furosemide (Lasix) 20 mg IVP Q12H [facility] Last Admin: 09/08/16 08:10 Dose: Not Given Levalbuterol HCl (Xopenex) 1.25 mg IH Q4H PRN PRN Reason: SOB Lisinopril (Zestril) 5 mg PO DAILY [facility] Last Admin: 09/08/16 09:59 Dose: Not Given Metoprolol Tartrate (Lopressor) 25 mg PO BID [facility] Last Admin: 09/08/16 09:59 Dose: Not Given Polyethylene Glycol (Miralax) 17 gm PO DAILY [facility] Last Admin: 09/08/16 09:58 Dose: 17 gm Spironolactone (Aldactone) 12.5 mg PO DAILY [facility] Last Admin: 09/08/16 09:59 Dose: Not Given - Labs Labs: 09/08/16 07:47 09/08/16 07:45 PT 11.2 Seconds (9.9-11.8) 09/05/16 10:31 INR 1.04 (0.93-1.08) 09/05/16 10:31 APTT 26.1 Seconds (23.7-30.8) 09/05/16 10:31 - Constitutional Appears: No Acute Distress - Head Exam Head Exam: ATRAUMATIC, NORMAL INSPECTION, NORMOCEPHALIC - Eye Exam Eye Exam: EOMI, Normal appearance, PERRL Pupil Exam: NORMAL ACCOMODATION, PERRL - ENT Exam ENT Exam: Mucous Membranes Moist, Normal Exam - Neck Exam Neck Exam: Full ROM, Normal Inspection. absent: Lymphadenopathy - Respiratory Exam Respiratory Exam: Clear to Ausculation Bilateral, NORMAL BREATHING PATTERN - Cardiovascular Exam Cardiovascular Exam: REGULAR RHYTHM, +S1, +S2. absent: Murmur - GI/Abdominal Exam GI & Abdominal Exam: Soft, Normal Bowel Sounds. absent: Tenderness - Extremities Exam Extremities Exam: Full ROM, Normal Capillary Refill, Normal Inspection. absent : Joint Swelling, Pedal Edema - Back Exam Back Exam: NORMAL INSPECTION - Neurological Exam Neurological Exam: Alert, Awake, CN II-XII Intact, Normal Gait, Oriented x3 - Psychiatric Exam Psychiatric exam: Normal Affect, Normal Mood - Skin Skin Exam: Dry, Intact, Normal Color, Warm Assessment and Plan - Assessment and Plan (Free Text) Assessment: 56 yrs old male with Biventricular failure, severe systolic dysfunction on Echo , EF is 16%.Patient also has elevated LFT likely due to congested liver, improving. 1.Acute on chronic Systolic CHF exacerbation Improving with diuresis, Renal functions are mildly worsen, creatinin increased to 1.5, will decrease lasix to 20 mg iv bid continue DIANN and aldactone Cardiology is following, plan for possible cardiac catherization to rule out ischemic Cardiomyopathy Cardiology to decided about AICD 2.Elevated LFT due to congested liver Improving with diuresis will monitor Statin are on hold due to elevated LFT 3.DVT Prohylaxis will switch to DVT Prophylaxis instead of therapeutic ac Seen reviewed and discussed with attending <Margarette STEWARD,Bon - Last Filed: 09/08/16 14:38> Objective - Vital Signs/Intake and Output Vital Signs (last 24 hours): Temp Pulse Resp BP Pulse Ox 98.3 F 72 20 103/70 99 09/08/16 12:00 09/08/16 12:00 09/08/16 12:00 09/08/16 12:00 09/07/16 23:44 Intake and Output: 09/08/16 09/08/16 06:59 18:59 Intake Total 900 Balance 900 - Medications Medications: Current Medications Aspirin (Ecotrin) 81 mg PO DAILY [facility] Last Admin: 09/08/16 09:57 Dose: 81 mg Enoxaparin Sodium (Lovenox) 40 mg SC DAILY [facility] PRN Reason: Protocol Last Admin: 09/08/16 09:58 Dose: 40 mg Famotidine (Pepcid) 20 mg PO BID [facility] Last Admin: 09/08/16 09:58 Dose: 20 mg Furosemide (Lasix) 20 mg IVP Q12H [facility] Last Admin: 09/08/16 08:10 Dose: Not Given Levalbuterol HCl (Xopenex) 1.25 mg IH Q4H PRN PRN Reason: SOB Lisinopril (Zestril) 5 mg PO DAILY [facility] Last Admin: 09/08/16 09:59 Dose: Not Given Metoprolol Tartrate (Lopressor) 25 mg PO BID [facility] Last Admin: 09/08/16 09:59 Dose: Not Given Polyethylene Glycol (Miralax) 17 gm PO DAILY [facility] Last Admin: 09/08/16 09:58 Dose: 17 gm Spironolactone (Aldactone) 12.5 mg PO DAILY [facility] Last Admin: 09/08/16 09:59 Dose: Not Given - Labs Labs: 09/08/16 07:47 09/08/16 07:45 PT 11.2 Seconds (9.9-11.8) 09/05/16 10:31 INR 1.04 (0.93-1.08) 09/05/16 10:31 APTT 26.1 Seconds (23.7-30.8) 09/05/16 10:31 Attending/Attestation - Attestation I have personally seen and examined this patient.: Yes I have fully participated in the care of the patient.: Yes I have reviewed all pertinent clinical information, including history, physical exam and plan: Yes Notes (Text): 09/08/16 14:36 Patient was seen and examined with medical research assistant .Agreed with resident assessment and plan. 56 yrs old male with Biventricular failure, severe systolic dysfunction on Echo , EF is 16%.Patient also has elevated LFT likely due to congested liver, improving.Creatinin has improved to 1.3.Transaminase are coming down.Avoid hepatotoxic medication. Cardiology follow up is appreciated. Management plan was discussed in detail with patient Education was provided.
--- NOTE | 2016-09-09 08:06 | PN ---
DATE: 09/08/2016 The patient denies chest pain. Shortness of breath has improved. PHYSICAL EXAMINATION: VITAL SIGNS: Blood pressure 103/70, heart rate 72, temperature 98.3, respirations 20. HEENT: Normocephalic. NECK: No JVD. CHEST: Clear. HEART: S1, S2 regular. EXTREMITIES: No edema. ASSESSMENT: 1. Cardiomyopathy. 2. Hypertension. RECOMMENDATIONS: Continue Aldactone, aspirin, Lasix, Lopressor, subcutaneous Lovenox, Zestril. Card iac catheterization was discussed with the patient via a court interpreter. The patient agreed and will be scheduled hopefully for tomorrow or Friday depending on the cardiac catheterization schedule d. Jeronimo Warner MD cc: [id number] TT: 09/08/2016 15:44:31 Confirmation # [id number] Dictation # [id number]
[2016-09-09 08:16] LABS: ALB/GLOB RATIO 1.4 (1.1-1.8); ALKALINE PHOSPHATASE 62 U/L (38-133); ALT/SGPT 174 U/L (7-56); AST/SGOT 113 U/L (15-59); BILIRUBIN,TOTAL 0.6 mg/dL (0.2-1.3); BLOOD UREA NITROGEN 26 mg/dL (7-21); CALCIUM 9.3 mg/dL (8.4-10.5); CARBON DIOXIDE 31 mmol/L (21-33); CHLORIDE 101 mmol/L (95-110); GFR AFRICAN-AMERICAN > 60; GLUCOSE,RANDOM 90 mg/dL (70-110); SODIUM 139 mmol/L (132-148); TOTAL PROTEIN 6.9 g/dL (5.8-8.3)
[2016-09-09 08:24] LABS: ADD MANUAL DIFF? NO
[2016-09-09 08:30] LABS: BASO # 0.02 K/mm3 (0.0-2.0); BASO % 0.3 % (0.0-3.0); EOS # 0.2 (0.0-0.7); EOS % 2.7 % (1.5-5.0); GRAN # 3.04 (1.4-6.5); GRAN % 50.4 % (50.0-68.0); HEMATOCRIT 48.2 % (42.0-52.0); LYMPH # 2.3 (1.2-3.4); MEAN CELL VOLUME 93.6 fL (80.0-105.0); MEAN CORPUSCULAR HEMOGLOBIN 32.4 pg (25.0-35.0); MEAN CORPUSCULAR HGB CONC 34.6 g/dl (31.0-37.0); MEAN PLATELET VOLUME 11.4 fl (7.0-11.0); MONO # 0.5 (0.1-0.6); MONO % 8.6 % (1.0-6.0); PLATELET COUNT 260 10^3/uL (120.0-450.0); RED CELL DISTRIBUTION WIDTH 12.8 % (11.5-14.5)
[2016-09-09] MEDS: Enoxaparin 40 mg Syringe SC SCH (09:41)
[2016-09-09] MEDS: POLYETHYLENE GLYCOL 3350 17 GM/Dose PACKET PO SCH (09:42)
[2016-09-09] MEDS ORDERED: Iodixanol 320 mg/ml 150 ml Bottle IV ONE (10:46)
[2016-09-09] MEDS ORDERED: Lidocaine 2% Inj (20ml) ONE (10:46)
[2016-09-09] MEDS ORDERED: Midazolam 2 MG/2 ML VIAL ONE (11:37)
--- NOTE | 2016-09-09 13:54 | CP.PCM.PN ---
<Sophie Lester - Last Filed: 09/09/16 13:54> Subjective - Date & Time of Evaluation Date of Evaluation: 09/09/16 Time of Evaluation: 09:30 - Subjective Subjective: Pt was seen and examined at bedside. Pt has no acute complaints at this time. As per nursing staff, no acute or adverse events overnight. Pt is anxious about his procedure. He is tolerating his po diet, moving bowels and bladder regularly. He denied fever chills, sob, chest pains, abdominal pains, n/v/d/c. Objective - Vital Signs/Intake and Output Vital Signs (last 24 hours): Temp Pulse Resp BP Pulse Ox 97.5 F L 53 L 18 124/62 97 09/09/16 12:00 09/09/16 12:00 09/09/16 12:00 09/09/16 12:00 09/09/16 06:00 Intake and Output: 09/09/16 09/09/16 06:59 18:59 Intake Total 1560 Balance 1560 - Medications Medications: Current Medications Aspirin (Ecotrin) 81 mg PO DAILY [facility] Last Admin: 09/09/16 10:40 Dose: 81 mg Enoxaparin Sodium (Lovenox) 40 mg SC DAILY [facility] PRN Reason: Protocol Last Admin: 09/09/16 09:41 Dose: Not Given Famotidine (Pepcid) 20 mg PO BID [facility] Last Admin: 09/09/16 10:37 Dose: Not Given Furosemide (Lasix) 20 mg IVP Q12H [facility] Last Admin: 09/09/16 08:12 Dose: 20 mg Levalbuterol HCl (Xopenex) 1.25 mg IH Q4H PRN PRN Reason: SOB Lisinopril (Zestril) 5 mg PO DAILY [facility] Last Admin: 09/09/16 10:37 Dose: Not Given Metoprolol Tartrate (Lopressor) 25 mg PO BID [facility] Last Admin: 09/09/16 10:36 Dose: Not Given Polyethylene Glycol (Miralax) 17 gm PO DAILY [facility] Last Admin: 09/09/16 09:42 Dose: Not Given Spironolactone (Aldactone) 12.5 mg PO DAILY [facility] Last Admin: 09/09/16 10:36 Dose: Not Given - Labs Labs: 09/09/16 08:20 09/09/16 07:40 PT 11.2 Seconds (9.9-11.8) 09/05/16 10:31 INR 1.04 (0.93-1.08) 09/05/16 10:31 APTT 26.1 Seconds (23.7-30.8) 09/05/16 10:31 - Constitutional Appears: No Acute Distress - Head Exam Head Exam: ATRAUMATIC, NORMAL INSPECTION, NORMOCEPHALIC - Eye Exam Eye Exam: EOMI, Normal appearance, PERRL Pupil Exam: NORMAL ACCOMODATION, PERRL - ENT Exam ENT Exam: Mucous Membranes Moist, Normal Exam - Neck Exam Neck Exam: Full ROM, Normal Inspection. absent: Lymphadenopathy - Respiratory Exam Respiratory Exam: Clear to Ausculation Bilateral, NORMAL BREATHING PATTERN - Cardiovascular Exam Cardiovascular Exam: REGULAR RHYTHM, +S1, +S2. absent: Murmur - GI/Abdominal Exam GI & Abdominal Exam: Soft, Normal Bowel Sounds. absent: Tenderness - Extremities Exam Extremities Exam: Full ROM, Normal Capillary Refill, Normal Inspection. absent : Joint Swelling, Pedal Edema - Back Exam Back Exam: NORMAL INSPECTION - Neurological Exam Neurological Exam: Alert, Awake, CN II-XII Intact, Normal Gait, Oriented x3 - Psychiatric Exam Psychiatric exam: Normal Affect, Normal Mood - Skin Skin Exam: Dry, Intact, Normal Color, Warm Assessment and Plan - Assessment and Plan (Free Text) Assessment: 56 yrs old male with Biventricular failure, severe systolic dysfunction on Echo , EF is 16%.Patient also has elevated LFT likely due to congested liver, improving. 1.Acute on chronic Systolic CHF exacerbation For cardiac cath this morning with Dr. Warner Improving with diuresis, will optimize decrease lasix to 20 mg iv bid continue DIANN and aldactone Cardiology is following, plan for possible cardiac catherization to rule out ischemic Cardiomyopathy Cardiology to discuss AICD 2.Elevated LFT due to congested liver Improving with diuresis, will optimize will monitor Statin are on hold due to elevated LFT 3.DVT Prohylaxis will switch to DVT Prophylaxis instead of therapeutic ac Seen reviewed and discussed with attending <Margarette STEWARD,Bon - Last Filed: 09/09/16 16:45> Objective - Vital Signs/Intake and Output Vital Signs (last 24 hours): Temp Pulse Resp BP Pulse Ox 97.5 F L 59 L 18 124/62 97 09/09/16 12:00 09/09/16 14:00 09/09/16 12:00 09/09/16 12:00 09/09/16 06:00 Intake and Output: 09/09/16 09/09/16 06:59 18:59 Intake Total 1560 Balance 1560 - Medications Medications: Current Medications Aspirin (Ecotrin) 81 mg PO DAILY [facility] Last Admin: 09/09/16 10:40 Dose: 81 mg Enoxaparin Sodium (Lovenox) 40 mg SC DAILY [facility] PRN Reason: Protocol Last Admin: 09/09/16 09:41 Dose: Not Given Famotidine (Pepcid) 20 mg PO BID [facility] Last Admin: 09/09/16 10:37 Dose: Not Given Furosemide (Lasix) 20 mg IVP Q12H [facility] Last Admin: 09/09/16 08:12 Dose: 20 mg Levalbuterol HCl (Xopenex) 1.25 mg IH Q4H PRN PRN Reason: SOB Lisinopril (Zestril) 5 mg PO DAILY [facility] Last Admin: 09/09/16 10:37 Dose: Not Given Metoprolol Tartrate (Lopressor) 25 mg PO BID [facility] Last Admin: 09/09/16 10:36 Dose: Not Given Polyethylene Glycol (Miralax) 17 gm PO DAILY [facility] Last Admin: 09/09/16 09:42 Dose: Not Given Spironolactone (Aldactone) 12.5 mg PO DAILY [facility] Last Admin: 09/09/16 10:36 Dose: Not Given - Labs Labs: 09/09/16 08:20 09/09/16 07:40 PT 11.2 Seconds (9.9-11.8) 09/05/16 10:31 INR 1.04 (0.93-1.08) 09/05/16 10:31 APTT 26.1 Seconds (23.7-30.8) 09/05/16 10:31 Attending/Attestation - Attestation I have personally seen and examined this patient.: Yes I have fully participated in the care of the patient.: Yes I have reviewed all pertinent clinical information, including history, physical exam and plan: Yes Notes (Text): 09/09/16 16:42 Patient was seen and examined with spanish medical interpreter History was taken with the help of editor continuity and script..Agreed with resident assessment and plan. Patient underwent cardiac catherization today that showed non ischemic CMP, EF was 15%.Patient dyspnea is improving, will continue IV lasix/Beta dori/ Spironolactone and DIANN.Cardiology to decided about life vest prior to discharge. Management plan was discussed in detail with patient Education was provided. 09/09/16 16:44
--- NOTE | 2016-09-09 16:37 | CARDCATH ---
PROCEDURE DATE: 09/09/2016 The patient is a 56-year-old male who has history of hypertension, presented because of shor tness of breath. Echocardiographic study was consistent with biventricular failure with severely dep ressed ejection fraction. Cardiac catheterization was recommended to rule out an ischemic etiology. The procedure and its risks fully explained to the patient who understood them and agreed for the pr ocedure. PROCEDURE: Left and right coronary angiography performed with 6-Tajik JL4 and JR4 diagnostic cathet er. Left ventriculogram was performed with 6-Tajik pigtail catheter. The patient tolerated the pro cedure well without any complications. ANGIOGRAPHIC FINDINGS: Selective injection of left coronary artery revealed left main to be a normal vessel, left main bifurcated into medium-sized LAD and medium-sized circumflex artery. The entire l eft coronary circulation was angiographically unremarkable. Selective injection of right coronary ar kayden revealed a medium-sized dominant vessel that was angiographically unremarkable. Left ventriculo gram performed in ORTEGA projection revealed dilated and diffusely hypokinetic left ventricle. Ejection fraction estimated at 15%. CONCLUSION: 1. Nonischemic cardiomyopathy. 2. Hypertensive etiology is most likely the causative factor. RECOMMENDATIONS: Continue current afterload reducing agents, Aldactone and beta blockers. The patie nt will be reevaluated in 3 months. If ejection fraction remains significantly depressed an ICD is r ecommended; however, the option of having a vest will be considered prior to discharge. Jeronimo Warner MD cc: [id number] TT: 09/09/2016 16:36:20 [email or web address]
[2016-09-10 07:05] LABS: ADD MANUAL DIFF? NO
[2016-09-10 07:15] LABS: BASO # 0.02 K/mm3 (0.0-2.0); BASO % 0.3 % (0.0-3.0); EOS # 0.1 (0.0-0.7); EOS % 1.3 % (1.5-5.0); GRAN % 61.9 % (50.0-68.0); HEMATOCRIT 46.4 % (42.0-52.0); LYMPH % 27.8 % (22.0-35.0); MEAN CELL VOLUME 94.3 fL (80.0-105.0); MEAN CORPUSCULAR HEMOGLOBIN 32.3 pg (25.0-35.0); MEAN CORPUSCULAR HGB CONC 34.3 g/dl (31.0-37.0); MEAN PLATELET VOLUME 11.6 fl (7.0-11.0); MONO # 0.6 (0.1-0.6); MONO % 8.7 % (1.0-6.0); PLATELET COUNT 255 10^3/uL (120.0-450.0); RED CELL DISTRIBUTION WIDTH 12.9 % (11.5-14.5); WHITE BLOOD COUNT 7.1 10^3/ul (4.5-11.0)
[2016-09-10 07:23] LABS: ALB/GLOB RATIO 1.3 (1.1-1.8); ALKALINE PHOSPHATASE 60 U/L (38-133); ALT/SGPT 172 U/L (7-56); AST/SGOT 118 U/L (15-59); BILIRUBIN,TOTAL 0.7 mg/dL (0.2-1.3); BLOOD UREA NITROGEN 25 mg/dL (7-21); CALCIUM 9.3 mg/dL (8.4-10.5); CARBON DIOXIDE 29 mmol/L (21-33); CHLORIDE 102 mmol/L (98-107); GFR AFRICAN-AMERICAN > 60; GLUCOSE,RANDOM 87 mg/dL (70-110); POTASSIUM 4.9 mmol/L (3.6-5.0); SODIUM 139 mmol/L (132-148); TOTAL PROTEIN 6.8 g/dL (5.8-8.3)
[2016-09-10] MEDS: POLYETHYLENE GLYCOL 3350 17 GM/Dose PACKET PO SCH (09:10)
[2016-09-10] MEDS: Enoxaparin 40 mg Syringe SC SCH (09:14)
--- NOTE | 2016-09-10 11:06 | CP.PCM.PN ---
<Sophie Lester - Last Filed: 09/10/16 11:06> Subjective - Date & Time of Evaluation Date of Evaluation: 09/10/16 Time of Evaluation: 07:25 - Subjective Subjective: Pt seen and examined at bedside. Pt has mild complaints of constipation. Pt is tolerating diet and moving his bladder regularly. He is tolerating cardiac cath procedure from yesterday well. No acute or adverse events overnight as per nursing staff. Pt denied fever, chill, sob, chest pains, abdominal pains, n/v/d or urinary symptoms. Objective - Vital Signs/Intake and Output Vital Signs (last 24 hours): Temp Pulse Resp BP Pulse Ox 97.5 F L 80 18 101/67 97 09/10/16 06:00 09/10/16 10:00 09/10/16 06:00 09/10/16 09:15 09/10/16 06:00 Intake and Output: 09/10/16 09/10/16 06:59 18:59 Intake Total 120 Output Total 0 Balance 120 - Medications Medications: Current Medications Aspirin (Ecotrin) 81 mg PO DAILY [facility] Last Admin: 09/10/16 09:10 Dose: 81 mg Enoxaparin Sodium (Lovenox) 40 mg SC DAILY [facility] PRN Reason: Protocol Last Admin: 09/10/16 09:14 Dose: 40 mg Famotidine (Pepcid) 20 mg PO BID [facility] Last Admin: 09/10/16 09:10 Dose: 20 mg Furosemide (Lasix) 20 mg IVP Q12H [facility] Last Admin: 09/10/16 09:15 Dose: 20 mg Levalbuterol HCl (Xopenex) 1.25 mg IH Q4H PRN PRN Reason: SOB Lisinopril (Zestril) 5 mg PO DAILY [facility] Last Admin: 09/10/16 09:14 Dose: 5 mg Metoprolol Tartrate (Lopressor) 25 mg PO BID [facility] Last Admin: 09/10/16 09:15 Dose: 25 mg Polyethylene Glycol (Miralax) 17 gm PO DAILY [facility] Last Admin: 09/10/16 09:10 Dose: 17 gm Spironolactone (Aldactone) 12.5 mg PO DAILY [facility] Last Admin: 09/10/16 09:09 Dose: 12.5 mg - Labs Labs: 09/10/16 07:00 09/10/16 07:00 PT 11.2 Seconds (9.9-11.8) 09/05/16 10:31 INR 1.04 (0.93-1.08) 09/05/16 10:31 APTT 26.1 Seconds (23.7-30.8) 09/05/16 10:31 - Constitutional Appears: No Acute Distress - Head Exam Head Exam: ATRAUMATIC, NORMAL INSPECTION, NORMOCEPHALIC - Eye Exam Eye Exam: EOMI, Normal appearance, PERRL Pupil Exam: NORMAL ACCOMODATION, PERRL - ENT Exam ENT Exam: Mucous Membranes Moist, Normal Exam - Neck Exam Neck Exam: Full ROM, Normal Inspection. absent: Lymphadenopathy - Respiratory Exam Respiratory Exam: Clear to Ausculation Bilateral, NORMAL BREATHING PATTERN - Cardiovascular Exam Cardiovascular Exam: REGULAR RHYTHM, +S1, +S2. absent: Murmur - GI/Abdominal Exam GI & Abdominal Exam: Soft, Normal Bowel Sounds. absent: Tenderness - Extremities Exam Extremities Exam: Full ROM, Normal Capillary Refill, Normal Inspection. absent : Joint Swelling, Pedal Edema Additional comments: Rt groin dressing cdi, no signs of hematoma/bleed - Neurological Exam Neurological Exam: Alert, Awake, CN II-XII Intact, Normal Gait, Oriented x3 - Psychiatric Exam Psychiatric exam: Normal Affect, Normal Mood - Skin Skin Exam: Dry, Intact, Normal Color, Warm Assessment and Plan - Assessment and Plan (Free Text) Assessment: 56 yrs old male with Biventricular failure, severe systolic dysfunction on Echo , EF is 16%.Patient also has elevated LFT likely due to congested liver, improving. 1.Acute on chronic Systolic CHF exacerbation Cardiac cath POD#[address] Warner, No signs of hematoma/bleed, EF 15%, nonischemic cardiomyopathy Improving with diuresis, will optimize lasix 20 mg iv bid continue DIANN and aldactone EP is consulted for vest eval Cardiology to discuss AICD after 3 mo fu echo 2.Elevated LFT due to congested liver Improving with diuresis, will optimize will monitor Statin are on hold due to elevated LFT 3. GI/ DVT Prohylaxis 4. Constipation - miralax not helping will provide lactulose Seen reviewed and discussed with attending <Margarette STEWARD,Bon - Last Filed: 09/13/16 09:03> Objective - Vital Signs/Intake and Output Vital Signs (last 24 hours): Temp Pulse Resp BP Pulse Ox 97.6 F 52 L 18 92/60 L 95 09/13/16 05:24 09/13/16 06:07 09/13/16 06:07 09/13/16 05:24 09/13/16 06:07 - Medications Medications: Current Medications Aspirin (Ecotrin) 81 mg PO DAILY [facility] Last Admin: 09/12/16 10:28 Dose: 81 mg Enoxaparin Sodium (Lovenox) 40 mg SC DAILY [facility] PRN Reason: Protocol Last Admin: 09/12/16 10:28 Dose: 40 mg Famotidine (Pepcid) 20 mg PO BID [facility] Last Admin: 09/12/16 18:38 Dose: 20 mg Furosemide (Lasix) 40 mg IVP DAILY [facility] Levalbuterol HCl (Xopenex) 1.25 mg IH Q4H PRN PRN Reason: SOB Lisinopril (Zestril) 5 mg PO DAILY [facility] Last Admin: 09/12/16 10:28 Dose: 5 mg Metoprolol Tartrate (Lopressor) 25 mg PO BID [facility] Last Admin: 09/12/16 18:38 Dose: 25 mg Polyethylene Glycol (Miralax) 17 gm PO DAILY [facility] Last Admin: 09/12/16 10:28 Dose: 17 gm - Labs Labs: 09/13/16 07:00 09/13/16 05:30 PT 11.2 Seconds (9.9-11.8) 09/05/16 10:31 INR 1.04 (0.93-1.08) 09/05/16 10:31 APTT 26.1 Seconds (23.7-30.8) 09/05/16 10:31 Attending/Attestation - Attestation I have personally seen and examined this patient.: Yes I have fully participated in the care of the patient.: Yes I have reviewed all pertinent clinical information, including history, physical exam and plan: Yes Notes (Text): 09/13/16 09:01 Patient was seen and examined with biomedical equipment tech History was taken with the help of concrete puddler..Agreed with resident assessment and plan. 56 Yrs olf male with Non ischemic CMP and elevated LFT due to congested liver .He is SP cardiac catherization today that showed non ischemic CMP, EF was 15%. Patient dyspnea is improving, will continue IV lasix/Beta dori/ Spironolactone and DIANN.Cardiology to decided about life vest prior to discharge. Management plan was discussed in detail with patient Education was provided.
[2016-09-11 08:15] LABS: ADD MANUAL DIFF? NO
[2016-09-11 08:24] LABS: BASO # 0.03 K/mm3 (0.0-2.0); BASO % 0.5 % (0.0-3.0); EOS # 0.2 (0.0-0.7); EOS % 2.7 % (1.5-5.0); GRAN # 3.19 (1.4-6.5); GRAN % 53.9 % (50.0-68.0); LYMPH # 2.1 (1.2-3.4); MEAN CORPUSCULAR HEMOGLOBIN 32.4 pg (25.0-35.0); MEAN CORPUSCULAR HGB CONC 34.5 g/dl (31.0-37.0); MEAN PLATELET VOLUME 11.4 fl (7.0-11.0); MONO # 0.5 (0.1-0.6); MONO % 7.9 % (1.0-6.0); PLATELET COUNT 230 10^3/uL (120.0-450.0); RED CELL DISTRIBUTION WIDTH 12.7 % (11.5-14.5); WHITE BLOOD COUNT 5.9 10^3/ul (4.5-11.0)
[2016-09-11 08:39] LABS: ALB/GLOB RATIO 1.4 (1.1-1.8); ALKALINE PHOSPHATASE 61 U/L (38-133); ALT/SGPT 149 U/L (7-56); AST/SGOT 90 U/L (15-59); BILIRUBIN,TOTAL 0.7 mg/dL (0.2-1.3); BLOOD UREA NITROGEN 25 mg/dL (7-21); CALCIUM 9.4 mg/dL (8.4-10.5); CARBON DIOXIDE 28 mmol/L (21-33); CHLORIDE 101 mmol/L (95-110); GFR AFRICAN-AMERICAN > 60; GLUCOSE,RANDOM 94 mg/dL (70-110); POTASSIUM 5.3 mmol/L (3.6-5.0); SODIUM 139 mmol/L (132-148)
[2016-09-11] MEDS ORDERED: Sod Polystyrene Sulf 15 gm/60 ml Oral Susp PO ONE (08:54)
[2016-09-11] MEDS: POLYETHYLENE GLYCOL 3350 17 GM/Dose PACKET PO SCH (09:13)
[2016-09-11] MEDS: Enoxaparin 40 mg Syringe SC SCH (09:13)
--- NOTE | 2016-09-11 12:47 | PN ---
DATE: 09/11/2016 The patient denies chest pain or groin bleeding. PHYSICAL EXAMINATION: VITAL SIGNS: Blood pressure 110/66, heart rate 70, temperature 97, respirations 20. HEENT: Normocephalic. NECK: No JVD. CHEST: Clear. HEART: S1, S2 regular. EXTREMITIES: No hematoma. No edema. LABORATORIES: Hemoglobin and hematocrit, white count and platelet count are within normal limits. S MA-7 is within normal limits except for potassium 5.3 and BUN of 25. ASSESSMENT: 1. Dilated cardiomyopathy. 2. Hypertension. 3. Hyperkalemia. RECOMMENDATIONS: Continue aspirin 81 mg once a day, Lasix at 40 mg intravenously twice a day, Lopres sor 25 mg twice a day, Lovenox at 40 mg once a day, Zestril 5 mg daily. Discontinue Aldactone. Case was discussed with Dr. Nolasco, the [employer], for possible VEST placement prior to dischar ge. Jeronimo Warner MD cc: [id number] TT: 09/11/2016 12:46:09 Confirmation # [id number] Dictation # [id number] edyta
--- NOTE | 2016-09-11 16:01 | CP.PCM.PN ---
<Yuriy Mcfadden - Last Filed: 09/11/16 15:58> Subjective - Date & Time of Evaluation Date of Evaluation: 09/11/16 Time of Evaluation: 10:00 - Subjective Subjective: Patient seen and examined this morning. He has no complaints at this time. Denies chest pain, shortness of breath, n/v/d, fever or chills. Patient's daughter - Ely ([phone]) is his next of kin in this country and can help provide medical insight for this patient. Patient apparently plans to stay and live in the for the foreseeable future. Objective - Vital Signs/Intake and Output Vital Signs (last 24 hours): Temp Pulse Resp BP Pulse Ox 97.4 F L 67 20 109/78 98 09/11/16 12:00 09/11/16 12:00 09/11/16 12:00 09/11/16 12:00 09/11/16 06:00 Intake and Output: 09/11/16 09/11/16 06:59 18:59 Intake Total 120 Balance 120 - Medications Medications: Current Medications Aspirin (Ecotrin) 81 mg PO DAILY [facility] Last Admin: 09/11/16 09:13 Dose: 81 mg Enoxaparin Sodium (Lovenox) 40 mg SC DAILY [facility] PRN Reason: Protocol Last Admin: 09/11/16 09:13 Dose: 40 mg Famotidine (Pepcid) 20 mg PO BID [facility] Last Admin: 09/11/16 09:13 Dose: 20 mg Furosemide (Lasix) 40 mg IVP Q12H [facility] Last Admin: 09/11/16 09:40 Dose: Not Given Levalbuterol HCl (Xopenex) 1.25 mg IH Q4H PRN PRN Reason: SOB Lisinopril (Zestril) 5 mg PO DAILY [facility] Last Admin: 09/11/16 09:13 Dose: 5 mg Metoprolol Tartrate (Lopressor) 25 mg PO BID [facility] Last Admin: 09/11/16 09:13 Dose: 25 mg Polyethylene Glycol (Miralax) 17 gm PO DAILY [facility] Last Admin: 09/11/16 09:13 Dose: 17 gm - Labs Labs: 09/11/16 08:00 09/11/16 08:00 PT 11.2 Seconds (9.9-11.8) 09/05/16 10:31 INR 1.04 (0.93-1.08) 09/05/16 10:31 APTT 26.1 Seconds (23.7-30.8) 09/05/16 10:31 - Constitutional Appears: Non-toxic, No Acute Distress - Head Exam Head Exam: ATRAUMATIC, NORMOCEPHALIC - Eye Exam Eye Exam: EOMI, PERRL - ENT Exam ENT Exam: Mucous Membranes Moist - Neck Exam Neck Exam: Full ROM, Normal Inspection - Respiratory Exam Respiratory Exam: NORMAL BREATHING PATTERN. absent: Respiratory Distress - Cardiovascular Exam Cardiovascular Exam: REGULAR RHYTHM, +S1, +S2 - GI/Abdominal Exam GI & Abdominal Exam: Soft, Normal Bowel Sounds - Extremities Exam Extremities Exam: Full ROM. absent: Pedal Edema - Neurological Exam Neurological Exam: Alert, Awake, Oriented x3 - Psychiatric Exam Psychiatric exam: Normal Affect, Normal Mood - Skin Skin Exam: Dry, Warm Assessment and Plan - Assessment and Plan (Free Text) Assessment: 56 yrs old male with Biventricular failure, severe systolic dysfunction on Echo , EF is 16%.Patient also has elevated LFT likely due to congested liver. Acute on chronic Systolic CHF exacerbation - EP is following and will arrange LifeVest for this patient. If patient's EF does not improve he will require ICD - Improving with diuresis, will optimize - continue lasix to 20 mg iv bid - continue DIANN, Aldactone discontinued Elevated LFT due to congested liver Improving with diuresis, will optimize will monitor Statin are on hold due to elevated LFT DVT Prohylaxis will switch to DVT Prophylaxis instead of therapeutic ac <Lawrence Cunningham - Last Filed: 09/11/16 18:37> Objective - Vital Signs/Intake and Output Vital Signs (last 24 hours): Temp Pulse Resp BP Pulse Ox 98.2 F 54 L 20 115/80 98 09/11/16 18:00 09/11/16 18:08 09/11/16 18:00 09/11/16 18:00 09/11/16 06:00 Intake and Output: 09/11/16 09/11/16 06:59 18:59 Intake Total 1080 Output Total 3 Balance 1077 - Medications Medications: Current Medications Aspirin (Ecotrin) 81 mg PO DAILY [facility] Last Admin: 09/11/16 09:13 Dose: 81 mg Enoxaparin Sodium (Lovenox) 40 mg SC DAILY [facility] PRN Reason: Protocol Last Admin: 09/11/16 09:13 Dose: 40 mg Famotidine (Pepcid) 20 mg PO BID [facility] Last Admin: 09/11/16 09:13 Dose: 20 mg Furosemide (Lasix) 40 mg IVP Q12H [facility] Last Admin: 09/11/16 09:40 Dose: Not Given Levalbuterol HCl (Xopenex) 1.25 mg IH Q4H PRN PRN Reason: SOB Lisinopril (Zestril) 5 mg PO DAILY [facility] Last Admin: 09/11/16 09:13 Dose: 5 mg Metoprolol Tartrate (Lopressor) 25 mg PO BID [facility] Last Admin: 09/11/16 18:08 Dose: Not Given Polyethylene Glycol (Miralax) 17 gm PO DAILY [facility] Last Admin: 09/11/16 09:13 Dose: 17 gm - Labs Labs: 09/11/16 08:00 09/11/16 08:00 PT 11.2 Seconds (9.9-11.8) 09/05/16 10:31 INR 1.04 (0.93-1.08) 09/05/16 10:31 APTT 26.1 Seconds (23.7-30.8) 09/05/16 10:31 Attending/Attestation - Attestation I have personally seen and examined this patient.: Yes I have fully participated in the care of the patient.: Yes I have reviewed all pertinent clinical information, including history, physical exam and plan: Yes Notes (Text): 09/11/16 18:33 attending note; Patient seen and examined with resident. Translation by patient's nurse. Patient is a 56-year-old male admitted with shortness of breath. Patient underwent cardiac catherization showed non ischemic CMP, EF was 15% .Patient dyspnea is improving, will continue IV lasix/Beta dori/ Spironolactone and ACEI.Cardiology evaluation with Dr. Warner appreciated. case discussed with EP school plant consultant DR. Clemente in detail. possibility of life Vest discussed in detail. message left with patient's daughter in detail. elevated LFTs; improving slowly.secondary to vascular congestion.hepatitis profile is negative. Upon discharge patient will follow up with [facility] [place] clinic.
[2016-09-12 07:15] LABS: ADD MANUAL DIFF? NO
[2016-09-12 07:28] LABS: BASO # 0.02 K/mm3 (0.0-2.0); BASO % 0.4 % (0.0-3.0); EOS # 0.2 (0.0-0.7); EOS % 3.4 % (1.5-5.0); GRAN # 2.72 (1.4-6.5); GRAN % 49.2 % (50.0-68.0); HEMATOCRIT 46.6 % (42.0-52.0); LYMPH # 2.1 (1.2-3.4); LYMPH % 37.1 % (22.0-35.0); MEAN CELL VOLUME 94.3 fL (80.0-105.0); MEAN CORPUSCULAR HEMOGLOBIN 31.8 pg (25.0-35.0); MEAN CORPUSCULAR HGB CONC 33.7 g/dl (31.0-37.0); MEAN PLATELET VOLUME 11.1 fl (7.0-11.0); MONO # 0.6 (0.1-0.6); MONO % 9.9 % (1.0-6.0); PLATELET COUNT 227 10^3/uL (120.0-450.0); RED CELL DISTRIBUTION WIDTH 12.7 % (11.5-14.5); WHITE BLOOD COUNT 5.5 10^3/ul (4.5-11.0)
[2016-09-12] MEDS: POLYETHYLENE GLYCOL 3350 17 GM/Dose PACKET PO SCH (10:28)
[2016-09-12] MEDS: Enoxaparin 40 mg Syringe SC SCH (10:28)
--- NOTE | 2016-09-12 11:31 | PN ---
DATE: 09/12/2016 The patient denied any chest pain or shortness of breath. No groin bleeding. PHYSICAL EXAMINATION: VITAL SIGNS: Blood pressure 100/62, heart rate 64, temperature 97.4, respiration 18. HEENT: Normocephalic. CHEST: Clear. HEART: S1, S2 regular. EXTREMITIES: No edema. LABORATORIES: Hemoglobin, hematocrit, white count and platelet count are within normal limits. SMA- 7 is within normal limits except for potassium 5.3 and BUN of 25. ASSESSMENT: 1. Cardiomyopathy. 2. Hypertension. RECOMMENDATIONS: Continue current aspirin, Lopressor, subcutaneous Lovenox, Zestril. The plan is to have a vest placement to be sponsored by the hospital for the first 1 month. Jeronimo Warenr MD cc: [id number] TT: 09/12/2016 11:30:03 Confirmation # [id number] Dictation # [id number]
--- NOTE | 2016-09-12 13:50 | CP.PCM.PN ---
<Sophie Lester - Last Filed: 09/12/16 13:50> Subjective - Date & Time of Evaluation Date of Evaluation: 09/12/16 Time of Evaluation: 09:30 - Subjective Subjective: Pt was seen and examined at bedside. No acute complaints at this time. No acute or adverse complaints overnight as per nursing staff. Pt had not had a bm yesterday, however did have one this morning. Pt denied fever, chills, sob, chest pains, abdominal pains, n/v/d/c or urinary symptoms. Objective - Vital Signs/Intake and Output Vital Signs (last 24 hours): Temp Pulse Resp BP Pulse Ox 97.6 F 56 L 16 102/68 98 09/12/16 11:59 09/12/16 11:59 09/12/16 11:59 09/12/16 11:59 09/12/16 06:00 Intake and Output: 09/12/16 09/12/16 06:59 18:59 Intake Total 120 Output Total 0 Balance 120 - Medications Medications: Current Medications Aspirin (Ecotrin) 81 mg PO DAILY [facility] Last Admin: 09/12/16 10:28 Dose: 81 mg Enoxaparin Sodium (Lovenox) 40 mg SC DAILY [facility] PRN Reason: Protocol Last Admin: 09/12/16 10:28 Dose: 40 mg Famotidine (Pepcid) 20 mg PO BID [facility] Last Admin: 09/12/16 10:28 Dose: 20 mg Furosemide (Lasix) 40 mg IVP Q12H [facility] Last Admin: 09/12/16 10:27 Dose: 40 mg Levalbuterol HCl (Xopenex) 1.25 mg IH Q4H PRN PRN Reason: SOB Lisinopril (Zestril) 5 mg PO DAILY [facility] Last Admin: 09/12/16 10:28 Dose: 5 mg Metoprolol Tartrate (Lopressor) 25 mg PO BID [facility] Last Admin: 09/12/16 10:33 Dose: Not Given Polyethylene Glycol (Miralax) 17 gm PO DAILY [facility] Last Admin: 09/12/16 10:28 Dose: 17 gm - Labs Labs: 09/12/16 06:50 09/11/16 08:00 PT 11.2 Seconds (9.9-11.8) 09/05/16 10:31 INR 1.04 (0.93-1.08) 09/05/16 10:31 APTT 26.1 Seconds (23.7-30.8) 09/05/16 10:31 - Constitutional Appears: No Acute Distress - Head Exam Head Exam: ATRAUMATIC, NORMAL INSPECTION, NORMOCEPHALIC - Eye Exam Eye Exam: EOMI, Normal appearance, PERRL Pupil Exam: NORMAL ACCOMODATION, PERRL - ENT Exam ENT Exam: Mucous Membranes Moist, Normal Exam - Neck Exam Neck Exam: Full ROM, Normal Inspection. absent: Lymphadenopathy - Respiratory Exam Respiratory Exam: Clear to Ausculation Bilateral, NORMAL BREATHING PATTERN - Cardiovascular Exam Cardiovascular Exam: REGULAR RHYTHM, +S1, +S2. absent: Murmur - GI/Abdominal Exam GI & Abdominal Exam: Soft, Normal Bowel Sounds. absent: Tenderness - Extremities Exam Extremities Exam: Full ROM, Normal Capillary Refill, Normal Inspection. absent : Joint Swelling, Pedal Edema - Back Exam Back Exam: NORMAL INSPECTION - Neurological Exam Neurological Exam: Alert, Awake, CN II-XII Intact, Normal Gait, Oriented x3 - Psychiatric Exam Psychiatric exam: Normal Affect, Normal Mood - Skin Skin Exam: Dry, Intact, Normal Color, Warm Assessment and Plan - Assessment and Plan (Free Text) Assessment: 56 yrs old male with Biventricular failure, severe systolic dysfunction on Echo , EF is 16%.Patient also has elevated LFT likely due to congested liver. Acute on chronic Systolic CHF exacerbation - cardiac catherization showed non ischemic CMP, EF was 15%.Patient dyspnea is improving. Cardiology consulted, Dr. Warner - rec fu echo in 3 months - EP is following and will arrange LifeVest for this patient. If patient's EF does not improve he will require ICD - Improving with diuresis, will optimize - continue lasix to 20 mg iv bid - continue DIANN, Aldactone discontinued Elevated LFT due to congested liver Improving with diuresis, will optimize will monitor Statin are on hold due to elevated LFT GI/ DVT Prohylaxis Arrangement being made for Life vest prior to dc Upon discharge patient will follow up with [facility]. Seen reviewed and discussed with Dr. Cunningham <Lawrence Cunningham - Last Filed: 09/12/16 14:12> Objective - Vital Signs/Intake and Output Vital Signs (last 24 hours): Temp Pulse Resp BP Pulse Ox 97.6 F 56 L 16 102/68 98 09/12/16 11:59 09/12/16 11:59 09/12/16 11:59 09/12/16 11:59 09/12/16 06:00 Intake and Output: 09/12/16 09/12/16 06:59 18:59 Intake Total 120 Output Total 0 Balance 120 - Medications Medications: Current Medications Aspirin (Ecotrin) 81 mg PO DAILY [facility] Last Admin: 09/12/16 10:28 Dose: 81 mg Enoxaparin Sodium (Lovenox) 40 mg SC DAILY [facility] PRN Reason: Protocol Last Admin: 09/12/16 10:28 Dose: 40 mg Famotidine (Pepcid) 20 mg PO BID [facility] Last Admin: 09/12/16 10:28 Dose: 20 mg Furosemide (Lasix) 40 mg IVP Q12H [facility] Last Admin: 09/12/16 10:27 Dose: 40 mg Levalbuterol HCl (Xopenex) 1.25 mg IH Q4H PRN PRN Reason: SOB Lisinopril (Zestril) 5 mg PO DAILY [facility] Last Admin: 09/12/16 10:28 Dose: 5 mg Metoprolol Tartrate (Lopressor) 25 mg PO BID [facility] Last Admin: 09/12/16 10:33 Dose: Not Given Polyethylene Glycol (Miralax) 17 gm PO DAILY [facility] Last Admin: 09/12/16 10:28 Dose: 17 gm - Labs Labs: 09/12/16 06:50 09/11/16 08:00 PT 11.2 Seconds (9.9-11.8) 09/05/16 10:31 INR 1.04 (0.93-1.08) 09/05/16 10:31 APTT 26.1 Seconds (23.7-30.8) 09/05/16 10:31 Attending/Attestation - Attestation I have personally seen and examined this patient.: Yes I have fully participated in the care of the patient.: Yes I have reviewed all pertinent clinical information, including history, physical exam and plan: Yes Notes (Text): 09/12/16 14:10 attending note; Patient seen and examined with resident. Patient is a 56-year-old male admitted with shortness of breath. Patient underwent cardiac catherization showed non ischemic CMP, EF was 15%. on IV lasix/Beta dori/Spironolactone and ACEI.Cardiology evaluation with Dr. Warner appreciated. case discussed with EP data quality consultant DR. Clemente in detail. Arrange for life vest before discharge. elevated LFTs; improving slowly.secondary to vascular congestion.hepatitis profile is negative. Upon discharge patient will follow up with [facility]
[2016-09-12 14:18] LABS: ALB/GLOB RATIO 1.4 (1.1-1.8); ALKALINE PHOSPHATASE 61 U/L (38-133); ALT/SGPT 118 U/L (7-56); AST/SGOT 55 U/L (15-59); BILIRUBIN,TOTAL 0.5 mg/dL (0.2-1.3); BLOOD UREA NITROGEN 21 mg/dL (7-21); CALCIUM 9.7 mg/dL (8.4-10.5); CARBON DIOXIDE 30 mmol/L (21-33); CHLORIDE 100 mmol/L (98-107); GFR AFRICAN-AMERICAN > 60; GLUCOSE,RANDOM 94 mg/dL (70-110); POTASSIUM 5.3 mmol/L (3.6-5.0); SODIUM 139 mmol/L (132-148); TOTAL PROTEIN 7.2 g/dL (5.8-8.3)
--- NOTE | 2016-09-12 18:05 | CON ---
DATE: 09/12/2016 REFERRING PHYSICIAN: Dr. Warner. HISTORY OF PRESENT ILLNESS: The patient is a 56-year-old male with past medical history sig nificant for hypertension, hypertensive heart disease, and heart failure, who presents to [facility] on the day of admission, 09/05/2016, with worsening acute shortness of breath. At times, the patient does have extreme shortness of breath with minimal exertion and had suffered from 2 pill ow orthopnea prior to coming in. Has also had episodes of paroxysmal nocturnal dyspnea, as well. No nproductive cough over the last 2 months. Weight loss is also noted. Denies any palpitations, dizzi ness, or syncope, however. The patient was admitted to [facility] for optimization of he art failure therapy. The patient was found to have an ejection fraction of 15%. Had been seen in co nsultation by Dr. Jeronimo Warner. Medication therapy was optimized. Did undergo left heart cath eterization which showed nonobstructive disease. I have been asked to see him in regards to stratifi cation for sudden cardiac and possible AICD candidacy. The patient was seen and examined. History was obtained by a film historian. REVIEW OF SYSTEMS: Pertinent positives as I have mentioned in the history of present illness. PAST MEDICAL HISTORY: Significant for hypertension, history of CHF of unclear etiology. MEDICATIONS: Prior to coming in the patient was not on any medications. SOCIAL HISTORY: Positive for tobacco use. Also does take alcohol. To what degree and how often is unclear. The patient does work doing manual labor as a construction supervisor/carpenter. PAST SURGICAL HISTORY: Denies any surgery. ALLERGIES: Denied any known drug allergies. FAMILY HISTORY: Negative for premature coronary artery disease or sudden cardiac . LABORATORY DATA: On review of CBC, white count is 5.5, H and H of 15.7 and 46.6, platelets of 227. Potassium of 5.3, sodium of 139, BUN and creatinine of 21 and 1.20. ALT and AST of 55 and 118. PHYSICAL EXAMINATION: VITAL SIGNS: Pulse rate is currently 57, blood pressure is 100/62. The patient is afebrile. GENERAL: He is a thin, very pleasant male in no acute distress, able to speak in complete s entences. HEENT: Head is normocephalic, atraumatic. There is no tigist facial asymmetry. Mucous membranes ernie ear moist. NECK: Supple, no jugular venous distention, no carotid bruits. CHEST: Clear to auscultation bilaterally. Mild bibasilar creps are noted. CARDIOVASCULAR: Regular rate, bradycardic, S1, S2, with a II/ holosystolic murmur heard best at th e apex, radiating across the precordium. ABDOMEN: Soft, nontender, nondistended. Positive for bowel sounds. EXTREMITIES: No cyanosis, clubbing, or edema. DIAGNOSTIC DATA: On review of 2D echocardiogram which was done on 09/05/2016, shows that the left ve ntricle is moderately dilated. There is mild concentric left ventricular hypertrophy. Systolic func tion is severely impaired. No LV thrombus was identified. Right ventricle is moderately dilated. F unction is severely reduced. Left atrium is moderately dilated. Right atrium is moderately dilated. There is severe tricuspid regurgitation with severe pulmonary hypertension. Shows normal sinus rhythm at 95 beats per minute. Normal P-wave morphology. Normal axis across the limb leads. Normal R-wave progression. Occasional PVCs of mid cavity origin and likely RV mid cavit y origin. ASSESSMENT AND PLAN: 1. Dilated cardiomyopathy, nonischemic cardiomyopathy: The patient will be initiated on medical the rapy. In the interim, with the risk of sudden cardiac in somebody with a severe cardiomyopathy , the patient has been offered a LifeVest. Is agreeable to wear a LifeVest. Financial consideration s are being worked out at this point. The patient is to continue medications and follow up regularly from a general cardiology standpoint and is to have a repeat echocardiogram in a period of 3 months. He has been given strict instructions in terms of compliance with medications, as well as complianc e with ethyl alcohol and smoking cessations. If after 3 months the ejection fraction is not greater than 35%, the patient may be a candidate for an implantable defibrillator. 2. Bradycardia, which at this point, he appears to be asymptomatic. The patient is in the process o f ambulating without any exertional dyspnea, lightheadedness, dizziness, or any related symptoms. Th e patient may require maximal medical therapy and as long as asymptomatic we would allow continuing m edical therapy. 3. Mitral regurgitation, tricuspid regurgitation, pulmonary hypertension: The patient has significa nt evidence of cardiomyopathy. At this point, he is status post left heart catheterization, which sh owed nonobstructive coronary disease. The patient may be suffering from burnt out hypertensive cardi omyopathy. The patient should follow up from a medical standpoint. If after 3 months he does not improve, he ma y require a defibrillator for primary prevention of sudden cardiac . Thank you for allowing me to participate in the care of your patient. Please do not hesitate to call me if you have any questions in regards to his care. Syed Nolasco MD cc: [phone] TT: 09/12/2016 18:04:25 Confirmation # [id number] Dictation # [id number]
[2016-09-13 06:08] VITALS: O2SAT 95
[2016-09-13 07:41] LABS: ADD MANUAL DIFF? NO
[2016-09-13 07:44] LABS: ALB/GLOB RATIO 1.4 (1.1-1.8); ALKALINE PHOSPHATASE 58 U/L (38-133); ALT/SGPT 103 U/L (7-56); AST/SGOT 50 U/L (15-59); BILIRUBIN,TOTAL 0.5 mg/dL (0.2-1.3); BLOOD UREA NITROGEN 22 mg/dL (7-21); CALCIUM 9.5 mg/dL (8.4-10.5); CARBON DIOXIDE 32 mmol/L (21-33); CHLORIDE 100 mmol/L (95-110); GFR AFRICAN-AMERICAN > 60; GLUCOSE,RANDOM 85 mg/dL (70-110); POTASSIUM 5.3 mmol/L (3.6-5.0); SODIUM 139 mmol/L (132-148); TOTAL PROTEIN 6.6 g/dL (5.8-8.3)
[2016-09-13 07:47] LABS: BASO # 0.03 K/mm3 (0.0-2.0); BASO % 0.6 % (0.0-3.0); EOS # 0.2 (0.0-0.7); EOS % 3.1 % (1.5-5.0); GRAN % 49.6 % (50.0-68.0); HEMATOCRIT 45.3 % (42.0-52.0); LYMPH # 2.2 (1.2-3.4); LYMPH % 39.5 % (22.0-35.0); MEAN CORPUSCULAR HEMOGLOBIN 31.7 pg (25.0-35.0); MEAN CORPUSCULAR HGB CONC 33.8 g/dl (31.0-37.0); MEAN PLATELET VOLUME 11.5 fl (7.0-11.0); MONO # 0.4 (0.1-0.6); MONO % 7.2 % (1.0-6.0); PLATELET COUNT 237 10^3/uL (120.0-450.0); RED CELL DISTRIBUTION WIDTH 12.5 % (11.5-14.5); WHITE BLOOD COUNT 5.4 10^3/ul (4.5-11.0)
[2016-09-13] MEDS ORDERED: Enoxaparin 40 mg Syringe ONE (10:54)
[2016-09-13] MEDS ORDERED: POLYETHYLENE GLYCOL 3350 17 GM/Dose PACKET ONE (10:54)
[2016-09-13] MEDS: POLYETHYLENE GLYCOL 3350 17 GM/Dose PACKET PO SCH (10:59)
[2016-09-13] MEDS: Enoxaparin 40 mg Syringe SC SCH (10:59)
[2016-09-13 11:54] VITALS: BP 104/63; PULSE 55; RESP 20; TEMP 98.2
[2016-09-13 13:46] LABS: BLOOD UREA NITROGEN 21 mg/dL (7-21); CALCIUM 9.5 mg/dL (8.4-10.5); CARBON DIOXIDE 28 mmol/L (21-33); CHLORIDE 101 mmol/L (98-107); GFR AFRICAN-AMERICAN > 60; GLUCOSE,RANDOM 83 mg/dL (70-110); POTASSIUM 4.8 mmol/L (3.6-5.0); SODIUM 139 mmol/L (132-148)
--- NOTE | 2016-09-13 15:07 | CP.PCM.DIS ---
<Sophie Lester - Last Filed: 09/13/16 17:25> Provider - Provider Date of Admission: 09/06/16 15:13 Attending physician: Lawrence Cunningham MD Consults: EP - Dr. Calixto Cardiology - Dr. Warner Time Spent in preparation of Discharge (in minutes): 45 Hospital Course - Lab Results Lab Results: Most Recent Lab Values WBC 5.4 10^3/ul (4.5-11.0) 09/13/16 07:00 RBC 4.82 10^6/uL (3.5-6.1) 09/13/16 07:00 Hgb 15.3 gm/dL (14.0-18.0) 09/13/16 07:00 Hct 45.3 % (42.0-52.0) 09/13/16 07:00 MCV 94.0 fL (80.0-105.0) 09/13/16 07:00 MCH 31.7 pg (25.0-35.0) 09/13/16 07:00 MCHC 33.8 g/dl (31.0-37.0) 09/13/16 07:00 RDW 12.5 % (11.5-14.5) 09/13/16 07:00 Plt Count 237 10^3/uL (120.0-450.0) 09/13/16 07:00 MPV 11.5 fl (7.0-11.0) H 09/13/16 07:00 Gran % 49.6 % (50.0-68.0) L 09/13/16 07:00 Lymph % (Auto) 39.5 % (22.0-35.0) H 09/13/16 07:00 [place] % (Auto) 7.2 % (1.0-6.0) H 09/13/16 07:00 Eos % (Auto) 3.1 % (1.5-5.0) 09/13/16 07:00 Baso % (Auto) 0.6 % (0.0-3.0) 09/13/16 07:00 Gran # 2.70 (1.4-6.5) 09/13/16 07:00 Lymph # 2.2 (1.2-3.4) 09/13/16 07:00 [place] # 0.4 (0.1-0.6) 09/13/16 07:00 Eos # 0.2 (0.0-0.7) 09/13/16 07:00 Baso # 0.03 K/mm3 (0.0-2.0) 09/13/16 07:00 PT 11.2 Seconds (9.9-11.8) 09/05/16 10:31 INR 1.04 (0.93-1.08) 09/05/16 10:31 APTT 26.1 Seconds (23.7-30.8) 09/05/16 10:31 D-Dimer, Quantitative 1.81 mg/L FEU (0-0.50) H 09/04/16 22:48 Sodium 139 mmol/L (132-148) 09/13/16 05:30 Potassium 5.3 mmol/L (3.6-5.0) H 09/13/16 05:30 Chloride 100 mmol/L (95-110) 09/13/16 05:30 Carbon Dioxide 32 mmol/L (21-33) 09/13/16 05:30 Anion Gap 12 (10-20) 09/13/16 05:30 BUN 22 mg/dL (7-21) H 09/13/16 05:30 Creatinine 1.3 mg/dL (0.5-1.4) 09/13/16 05:30 Est GFR ( Amer) > 60 09/13/16 05:30 Est GFR (Non-Af Amer) 57 09/13/16 05:30 Random Glucose 85 mg/dL (70-110) 09/13/16 05:30 Hemoglobin A1c 5.3 % (4.2-6.5) 09/05/16 09:13 Calcium 9.5 mg/dL (8.4-10.5) 09/13/16 05:30 Magnesium 1.9 mg/dL (1.7-2.2) 09/05/16 08:45 Iron 128 ug/dL (45-180) 09/05/16 09:00 TIBC 347 ug/dL (261-462) 09/05/16 09:00 % Saturation 37 % (20-55) 09/05/16 09:00 Ferritin 86.5 ng/mL 09/05/16 08:45 Total Bilirubin 0.5 mg/dL (0.2-1.3) 09/13/16 05:30 AST 50 U/L (15-59) 09/13/16 05:30 ALT 103 U/L (7-56) H 09/13/16 05:30 Alkaline Phosphatase 58 U/L (38-133) 09/13/16 05:30 Lactate Dehydrogenase 1137 U/L (333-699) H 09/04/16 22:48 Total Creatine Kinase 986 U/L (35-230) H 09/04/16 22:48 CK-MB (CK-2) 2.9 ng/mL (0.0-3.6) 09/04/16 22:48 CK-MB (CK-2) % Cancelled 09/04/16 22:48 Troponin I < 0.01 ng/mL D 09/07/16 11:50 NT-Pro-B Natriuret Pep 2030 pg/mL (0-450) H 09/04/16 22:48 Total Protein 6.6 g/dL (5.8-8.3) 09/13/16 05:30 Albumin 3.8 g/dL (3.0-4.8) 09/13/16 05:30 Globulin 2.8 gm/dL 09/13/16 05:30 Albumin/Globulin Ratio 1.4 (1.1-1.8) 09/13/16 05:30 Triglycerides 57 mg/dL (35-160) 09/05/16 08:45 Cholesterol 131 mg/dL (130-200) 09/05/16 08:45 LDL Cholesterol Direct 64 mg/dL (0-129) 09/05/16 08:45 HDL Cholesterol 52 mg/dL (29-60) 09/05/16 08:45 Vitamin B12 926 pg/mL (239-931) 09/05/16 08:45 Folate 14.7 ng/mL 09/05/16 08:45 TSH 3rd Generation 1.83 mIU/mL (0.46-4.68) 09/04/16 22:48 Urine Color Straw (YELLOW) 09/05/16 18:15 Urine Appearance Clear (CLEAR) 09/05/16 18:15 Urine pH 5.5 (4.7-8.0) 09/05/16 18:15 Ur Specific Lee 1.020 (1.005-1.035) 09/05/16 18:15 Urine Protein Negative mg/dL (<30 mg/dL) 09/05/16 18:15 Urine Glucose (UA) Negative mg/dL (NEGATIVE) 09/05/16 18:15 Urine Ketones Negative mg/dL (NEGATIVE) 09/05/16 18:15 Urine Blood Trace-intact (NEGATIVE) H 09/05/16 18:15 Urine Nitrate Negative (NEGATIVE) 09/05/16 18:15 Urine Bilirubin Negative (NEGATIVE) 09/05/16 18:15 Urine Urobilinogen 0.2 E.U./dL (<1 E.U./dL) 09/05/16 18:15 Ur Leukocyte Esterase Negative Neo/uL (NEGATIVE) 09/05/16 18:15 Urine RBC 1 - 3 /hpf (0-2) 09/05/16 18:15 Urine WBC 1 - 3 /hpf (0-6) 09/05/16 18:15 Ur Epithelial Cells 1 - 3 /hpf (0-5) 09/05/16 18:15 Urine Bacteria Few (NEG) 09/05/16 18:15 Urine Opiates Screen Negative (NEGATIVE) 09/05/16 06:11 Urine Methadone Screen Negative (NEGATIVE) 09/05/16 06:11 Ur Barbiturates Screen Negative (NEGATIVE) 09/05/16 06:11 Ur Phencyclidine Scrn Negative (NEGATIVE) 09/05/16 06:11 Ur Amphetamines Screen Negative (NEGATIVE) 09/05/16 06:11 U Benzodiazepines Scrn Negative (NEGATIVE) 09/05/16 06:11 U Oth Cocaine Metabols Negative (NEGATIVE) 09/05/16 06:11 U Cannabinoids Screen Negative (NEGATIVE) 09/05/16 06:11 Hepatitis A IgM Ab Negative (NEGATIVE) 09/05/16 09:00 Hep Bs Antigen Negative (NEGATIVE) 09/05/16 09:00 Hep B Core IgM Ab Negative (NEGATIVE) 09/05/16 09:00 Hepatitis C Antibody Negative (NEGATIVE) 09/05/16 09:00 TB Test (QFT) Nil 0.11 IU/mL 09/05/16 09:13 TB Test Mitogen - Nil 5.31 IU/mL 09/05/16 09:13 TB Test TB - Nil <0.00 IU/mL 09/05/16 09:13 TB Test (QFT) Negative (Negative) 09/05/16 09:13 - Hospital Course Hospital Course: 56yo [place] Speaking M from the DR who is coming in for acute SOB. Patient states at baseline he gets extremely short of breath even just going to the bathroom, uses 2 pillows to sleep at night, and never wakes up in the middle of the night gasping for air. Pt was admitted for acute decompensated heart failure. Echo ordered and demonstrated biventricular failure, severe systolic dysfunction on Echo, EF is 16%. Pt was started on Metoprolol, MUKESH, Aspirin all started low dose since pt did not know what medications he took at home. Cardiology, Alana Abbott was consulted. Pt was started on lasix 40mg IV BID for SOB; curly B lines seen on chest X-Ray; was tapered as the patient began to feel better. Pt also had complaints of leg Pain, and d dimer was found to be elevated. CTA angio was ordered however resulted as negative for PE . b/l LES US ordered and also resulted as negative for dvts. Acute on chronic Systolic CHF exacerbation continued to improve with with diuresis, however renal functions mildly worsened, creatinin increased to 1.5, decrease lasix to 20 mg iv bid continue MUKESH and aldactone. Cardiology Dr. Warner planned for possible cardiac catherization to rule out ischemic Cardiomyopathy. The patient experienced slight elevation in transaminitis likely secondary to congested liver. Statin and nsaids are on hold due to elevated LFT. Pt underwent Cardiac cath on 09/09/16 which demonstrated nonischemic cardiomyopathy with Ef of 15%. As per Cardio, continue, IV BB, spironolactone, and Mukesh inhibitor. Cardiology at this time consulted EP for a Life vest eval prior to discharge. sales representative sales manager arranged for life vest eval since pt has no insurance. Pt received life vest, was educated on how to use it and was subsequently stable for DC. Upon DC pt is to fu with [facility] clinic within 1 week. Pt is to fu with Cardiology within 1 week and at 3 mo for repeat echo for possible ICD placement. Discharge Exam - Head Exam Head Exam: ATRAUMATIC, NORMAL INSPECTION, NORMOCEPHALIC - Eye Exam Eye Exam: EOMI, Normal appearance, PERRL Pupil Exam: NORMAL ACCOMODATION, PERRL - ENT Exam ENT Exam: Mucous Membranes Moist - Respiratory Exam Respiratory Exam: Clear to PA & Lateral, NORMAL BREATHING PATTERN, UNREMARKABLE - Cardiovascular Exam Cardiovascular Exam: RRR, +S1, +S2 - GI/Abdominal Exam GI & Abdominal Exam: Normal Bowel Sounds - Extremities Exam Extremities exam: normal inspection - Neurological Exam Neurological exam: Alert, CN II-XII Intact, Normal Gait, Oriented x3, Reflexes Normal - Psychiatric Exam Psychiatric exam: Normal Affect, Normal Mood - Skin Skin Exam: Dry, Intact, Normal Color, Warm Discharge Plan - Discharge Medications Prescriptions: Aspirin [Ecotrin] 81 mg PO DAILY #30 Furosemide [Lasix] 40 mg PO DAILY #30 udc Lisinopril [Zestril] 5 mg PO DAILY #30 tab Metoprolol Tartrate [Lopressor] 25 mg PO BID #60 tab Polyethylene Glycol 3350 [Miralax] 17 gm PO DAILY #30 packet Spironolactone [Aldactone] 25 mg PO DAILY #30 tab - Follow Up Plan Condition: STABLE Disposition: HOME/ ROUTINE Instructions: Heart Failure (DC), Heart Failure (GEN), Chest Pain (DC), Chest Pain (GEN), Pacemaker (DC), Pacemaker (GEN), Pulmonary Edema (DC), Pulmonary Edema (GEN), Ascites (DC), Ascites (GEN) Additional Instructions: 1. Pt is to fu with [facility] within 1 week or PMD as pt wishes 2. Pt is to fu with [facility], Dr. Warner within 1 week and have repeat echo in 3 months 3. Pt is to fu with EP, Dr. Calixto as per PMD 4. Pt is to refrain from alcohol/tobacco/follow a heart healthy diet. 5. Pt is welcomed to return to [facility] if symptoms change or worsen Referrals: Jeronimo Warner MD [Staff Provider] - <Margarette STEWARD,[facility] - Last Filed: 09/16/16 13:23> Provider - Provider Date of Admission: 09/06/16 15:13 Attending physician: Lawrence Cunningham MD Hospital Course - Lab Results Lab Results: Most Recent Lab Values WBC 5.4 10^3/ul (4.5-11.0) 09/13/16 07:00 RBC 4.82 10^6/uL (3.5-6.1) 09/13/16 07:00 Hgb 15.3 gm/dL (14.0-18.0) 09/13/16 07:00 Hct 45.3 % (42.0-52.0) 09/13/16 07:00 MCV 94.0 fL (80.0-105.0) 09/13/16 07:00 MCH 31.7 pg (25.0-35.0) 09/13/16 07:00 MCHC 33.8 g/dl (31.0-37.0) 09/13/16 07:00 RDW 12.5 % (11.5-14.5) 09/13/16 07:00 Plt Count 237 10^3/uL (120.0-450.0) 09/13/16 07:00 MPV 11.5 fl (7.0-11.0) H 09/13/16 07:00 Gran % 49.6 % (50.0-68.0) L 09/13/16 07:00 Lymph % (Auto) 39.5 % (22.0-35.0) H 09/13/16 07:00 [place] % (Auto) 7.2 % (1.0-6.0) H 09/13/16 07:00 Eos % (Auto) 3.1 % (1.5-5.0) 09/13/16 07:00 Baso % (Auto) 0.6 % (0.0-3.0) 09/13/16 07:00 Gran # 2.70 (1.4-6.5) 09/13/16 07:00 Lymph # 2.2 (1.2-3.4) 09/13/16 07:00 [place] # 0.4 (0.1-0.6) 09/13/16 07:00 Eos # 0.2 (0.0-0.7) 09/13/16 07:00 Baso # 0.03 K/mm3 (0.0-2.0) 09/13/16 07:00 PT 11.2 Seconds (9.9-11.8) 09/05/16 10:31 INR 1.04 (0.93-1.08) 09/05/16 10:31 APTT 26.1 Seconds (23.7-30.8) 09/05/16 10:31 D-Dimer, Quantitative 1.81 mg/L FEU (0-0.50) H 09/04/16 22:48 Sodium 139 mmol/L (132-148) 09/13/16 13:30 Potassium 4.8 mmol/L (3.6-5.0) 09/13/16 13:30 Chloride 101 mmol/L (98-107) 09/13/16 13:30 Carbon Dioxide 28 mmol/L (21-33) 09/13/16 13:30 Anion Gap 15 (10-20) 09/13/16 13:30 BUN 21 mg/dL (7-21) 09/13/16 13:30 Creatinine 1.2 mg/dL (0.5-1.4) 09/13/16 13:30 Est GFR ( Amer) > 60 09/13/16 13:30 Est GFR (Non-Af Amer) > 60 09/13/16 13:30 Random Glucose 83 mg/dL (70-110) 09/13/16 13:30 Hemoglobin A1c 5.3 % (4.2-6.5) 09/05/16 09:13 Calcium 9.5 mg/dL (8.4-10.5) 09/13/16 13:30 Magnesium 1.9 mg/dL (1.7-2.2) 09/05/16 08:45 Iron 128 ug/dL (45-180) 09/05/16 09:00 TIBC 347 ug/dL (261-462) 09/05/16 09:00 % Saturation 37 % (20-55) 09/05/16 09:00 Ferritin 86.5 ng/mL 09/05/16 08:45 Total Bilirubin 0.5 mg/dL (0.2-1.3) 09/13/16 05:30 AST 50 U/L (15-59) 09/13/16 05:30 ALT 103 U/L (7-56) H 09/13/16 05:30 Alkaline Phosphatase 58 U/L (38-133) 09/13/16 05:30 Lactate Dehydrogenase 1137 U/L (333-699) H 09/04/16 22:48 Total Creatine Kinase 986 U/L (35-230) H 09/04/16 22:48 CK-MB (CK-2) 2.9 ng/mL (0.0-3.6) 09/04/16 22:48 CK-MB (CK-2) % Cancelled 09/04/16 22:48 Troponin I < 0.01 ng/mL D 09/07/16 11:50 NT-Pro-B Natriuret Pep 2030 pg/mL (0-450) H 09/04/16 22:48 Total Protein 6.6 g/dL (5.8-8.3) 09/13/16 05:30 Albumin 3.8 g/dL (3.0-4.8) 09/13/16 05:30 Globulin 2.8 gm/dL 09/13/16 05:30 Albumin/Globulin Ratio 1.4 (1.1-1.8) 09/13/16 05:30 Triglycerides 57 mg/dL (35-160) 09/05/16 08:45 Cholesterol 131 mg/dL (130-200) 09/05/16 08:45 LDL Cholesterol Direct 64 mg/dL (0-129) 09/05/16 08:45 HDL Cholesterol 52 mg/dL (29-60) 09/05/16 08:45 Vitamin B12 926 pg/mL (239-931) 09/05/16 08:45 Folate 14.7 ng/mL 09/05/16 08:45 TSH 3rd Generation 1.83 mIU/mL (0.46-4.68) 09/04/16 22:48 Urine Color Straw (YELLOW) 09/05/16 18:15 Urine Appearance Clear (CLEAR) 09/05/16 18:15 Urine pH 5.5 (4.7-8.0) 09/05/16 18:15 Ur Specific Lee 1.020 (1.005-1.035) 09/05/16 18:15 Urine Protein Negative mg/dL (<30 mg/dL) 09/05/16 18:15 Urine Glucose (UA) Negative mg/dL (NEGATIVE) 09/05/16 18:15 Urine Ketones Negative mg/dL (NEGATIVE) 09/05/16 18:15 Urine Blood Trace-intact (NEGATIVE) H 09/05/16 18:15 Urine Nitrate Negative (NEGATIVE) 09/05/16 18:15 Urine Bilirubin Negative (NEGATIVE) 09/05/16 18:15 Urine Urobilinogen 0.2 E.U./dL (<1 E.U./dL) 09/05/16 18:15 Ur Leukocyte Esterase Negative Neo/uL (NEGATIVE) 09/05/16 18:15 Urine RBC 1 - 3 /hpf (0-2) 09/05/16 18:15 Urine WBC 1 - 3 /hpf (0-6) 09/05/16 18:15 Ur Epithelial Cells 1 - 3 /hpf (0-5) 09/05/16 18:15 Urine Bacteria Few (NEG) 09/05/16 18:15 Urine Opiates Screen Negative (NEGATIVE) 09/05/16 06:11 Urine Methadone Screen Negative (NEGATIVE) 09/05/16 06:11 Ur Barbiturates Screen Negative (NEGATIVE) 09/05/16 06:11 Ur Phencyclidine Scrn Negative (NEGATIVE) 09/05/16 06:11 Ur Amphetamines Screen Negative (NEGATIVE) 09/05/16 06:11 U Benzodiazepines Scrn Negative (NEGATIVE) 09/05/16 06:11 U Oth Cocaine Metabols Negative (NEGATIVE) 09/05/16 06:11 U Cannabinoids Screen Negative (NEGATIVE) 09/05/16 06:11 Hepatitis A IgM Ab Negative (NEGATIVE) 09/05/16 09:00 Hep Bs Antigen Negative (NEGATIVE) 09/05/16 09:00 Hep B Core IgM Ab Negative (NEGATIVE) 09/05/16 09:00 Hepatitis C Antibody Negative (NEGATIVE) 09/05/16 09:00 TB Test (QFT) Nil 0.11 IU/mL 09/05/16 09:13 TB Test Mitogen - Nil 5.31 IU/mL 09/05/16 09:13 TB Test TB - Nil <0.00 IU/mL 09/05/16 09:13 TB Test (QFT) Negative (Negative) 09/05/16 09:13 Attending/Attestation - Attestation I have personally seen and examined this patient.: Yes I have fully participated in the care of the patient.: Yes I have reviewed all pertinent clinical information, including history, physical exam and plan: Yes Notes (Text): 09/16/16 13:17 Patient was seen and examined with medical unit secretary History was taken with the help of auto technician..Agreed with resident assessment and plan. 56 Yrs old male with Non ischemic CMP and elevated LFT due to congested liver .He is SP cardiac catherization today that showed non ischemic CMP, EF was 15%. Patient dyspnea has improved, he is ambulatory.He is on lasix/Beta dori/ Spironolactone and MUKESH.Mild .Life vest was placed in prior to discharge Patient was given education for CHF and life vest prior to discharge.The issue of compliance with medication and diet was discussed in detail. Patient will need repeat Echo in 3 month, if his EF will not improve, then he will need AICD. Management plan was discussed in detail with patient Education was provided.
== END 2016-09-13 16:15 | disposition home or self-care (01) | DRG 287 ==
LOC: ED 23:11 → ERH 09-05 04:24 → 2RNO 09-05 06:30 → OBSVTOIN 09-06 15:13 → 2RSO 09-08 02:37
PROVIDERS: ADMIT Internal Medicine; ATTEND Internal Medicine
PROC: B211YZZ Fluoroscopy of Multiple Coronary Arteries using Other Contrast (ICD-10-PCS; principal; 2016-09-09)
PROC: B215YZZ Fluoroscopy of Left Heart using Other Contrast (ICD-10-PCS; 2016-09-09)
DX: I11.0 Hypertensive heart disease with heart failure (principal); I50.23 Acute on chronic systolic (congestive) heart failure; I42.0 Dilated cardiomyopathy; I27.2 Other secondary pulmonary hypertension; K76.1 Chronic passive congestion of liver; E78.5 Hyperlipidemia, unspecified; J84.9 Interstitial pulmonary disease, unspecified; I08.1 Rheumatic disorders of both mitral and tricuspid valves; R00.1 Bradycardia, unspecified; K59.00 Constipation, unspecified; E87.5 Hyperkalemia; D64.9 Anemia, unspecified; R74.8 Abnormal levels of other serum enzymes; Z87.891 Personal history of nicotine dependence

== ENCOUNTER 2016-10-05 15:22 | Inpatient (IN) | payer OTHER, MEDICAID ==
[2016-10-05 16:01] VITALS: BMI 25.1
[2016-10-05] MEDS ORDERED: Sodium Chloride 0.9% 1,000 ML IV STA (16:07)
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
[2016-10-05 16:56] LABS: VENOUS BLOOD GAS BASE EXCESS 4.1 mmol/L (0.0-2.0); VENOUS BLOOD GAS PO2 38 mm/Hg (30-55); VENOUS BLOOD PH 7.43 (7.32-7.43)
[2016-10-05 17:05] LABS: ALB/GLOB RATIO 1.2 (1.1-1.8); ALT/SGPT 36 U/L (7-56); AST/SGOT 24 U/L (15-59); BLOOD UREA NITROGEN 21 mg/dL (7-21); CALCIUM 8.8 mg/dL (8.4-10.5); GFR AFRICAN-AMERICAN 51; GFR NON-AFRICAN AMERICAN 42; LIPASE 48 U/L (23-300); MAGNESIUM 1.8 mg/dL (1.7-2.2)
[2016-10-05 17:09] LABS: BASO # 0.02 K/mm3 (0.0-2.0); BASO % 0.1 % (0.0-3.0); EOS % 0.1 % (1.5-5.0); HEMOGLOBIN 14.8 gm/dL (14.0-18.0); LYMPH # 1.3 (1.2-3.4); LYMPH % 7.4 % (22.0-35.0); MEAN CELL VOLUME 90.6 fL (80.0-105.0); MEAN CORPUSCULAR HEMOGLOBIN 32.3 pg (25.0-35.0); MEAN CORPUSCULAR HGB CONC 35.7 g/dl (31.0-37.0); MEAN PLATELET VOLUME 11.3 fl (7.0-11.0); MONO # 1.8 (0.1-0.6); MONO % 10.4 % (1.0-6.0); PLATELET COUNT 160 10^3/uL (120.0-450.0); RBC 4.58 10^6/uL (3.5-6.1); RED CELL DISTRIBUTION WIDTH 12.1 % (11.5-14.5); WHITE BLOOD COUNT 17.1 10^3/ul (4.5-11.0)
[2016-10-05 17:13] LABS: INR 1.12 (0.93-1.08); PROTHROMBIN TIME 12.1 Seconds (9.9-11.8)
[2016-10-05 17:14] LABS: URINE BILIRUBIN NEGATIVE (NEGATIVE); URINE BLOOD MODERATE (NEGATIVE); URINE GLUCOSE (UA) NEGATIVE (NEGATIVE); URINE LEUKOCYTE ESTERASE NEGATIVE Leu/uL (NEGATIVE); URINE NITRATE NEGATIVE (NEGATIVE); URINE PROTEIN NEGATIVE mg/dL (<30 mg/dL); URINE UROBILINOGEN 0.2 E.U./dL (<1 E.U./dL)
[2016-10-05 17:16] LABS: B-TYPE NATRIURETIC PEPTIDE 2130 pg/mL (0-450)
[2016-10-05 17:21] LABS: URINE APPEARANCE CLEAR (CLEAR); URINE COLOR YELLOW (YELLOW)
[2016-10-05 17:26] LABS: TROPONIN I < 0.01 ng/mL
[2016-10-05 17:27] LABS: URINE RBC 15 - 20 /hpf (0-2)
[2016-10-05 17:28] LABS: URINE AMORPHOUS SEDIMENT MODERATE
[2016-10-05] MEDS ORDERED: Vancomycin 1gm in NS 250ml 1 GM/250 ML BAG IVPB STA (17:55)
[2016-10-05] MEDS ORDERED: Cefepime 1gm in NS 100ml 1 GM/100 ML BAG IVPB STA (17:59)
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
[2016-10-06] MEDS ORDERED: Sodium Chloride 0.9% 1,000 ML IV SCH (05:45)
[2016-10-06 08:03] LABS: BASO # 0.02 K/mm3 (0.0-2.0); BASO % 0.1 % (0.0-3.0); EOS # 0.1 (0.0-0.7); EOS % 0.3 % (1.5-5.0); GRAN # 14.57 (1.4-6.5); GRAN % 77.7 % (50.0-68.0); HEMOGLOBIN 14.5 gm/dL (14.0-18.0); LYMPH # 2.6 (1.2-3.4); MEAN CELL VOLUME 91.2 fL (80.0-105.0); MEAN CORPUSCULAR HGB CONC 35.1 g/dl (31.0-37.0); MEAN PLATELET VOLUME 11.5 fl (7.0-11.0); MONO # 1.5 (0.1-0.6); MONO % 7.9 % (1.0-6.0); PLATELET COUNT 183 10^3/uL (120.0-450.0); RBC 4.53 10^6/uL (3.5-6.1); RED CELL DISTRIBUTION WIDTH 12.3 % (11.5-14.5); WHITE BLOOD COUNT 18.8 10^3/ul (4.5-11.0)
[2016-10-06 08:18] LABS: ALB/GLOB RATIO 1.3 (1.1-1.8); ALBUMIN 3.9 g/dL (3.0-4.8); ALT/SGPT 36 U/L (7-56); AST/SGOT 32 U/L (15-59); BLOOD UREA NITROGEN 18 mg/dL (7-21); CALCIUM 8.9 mg/dL (8.4-10.5); GFR AFRICAN-AMERICAN > 60; GFR NON-AFRICAN AMERICAN 52
[2016-10-06] MEDS: Cefepime IV 2 gm in NS 2 GM/100 ML BAG IVPB SCH ×2 (09:47→21:54)
[2016-10-06] MEDS ORDERED: Vancomycin 1gm in NS 250ml 1 GM/250 ML BAG IVPB SCH (10:00)
[2016-10-06] MEDS ORDERED: Cefepime 1gm in NS 100ml 1 GM/100 ML BAG IVPB SCH (10:00)
--- NOTE | 2016-10-06 10:26 | CARD ---
APPROVED REPORT EKG Measurement Heart [id number] <Conclusion> Sinus bradycardia Minimal voltage criteria for LVH, may be normal variant Borderline ECG
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
--- NOTE | 2016-10-06 13:30 | RAD ---
HISTORY: Sepsis Patient COMPARISON: Comparison made with prior chest radiograph 09/05/2016 FINDINGS: LUNGS: Poor inspiration with low lung volumes, crowded bronchovascular markings and mild bibasilar atelectasis PLEURA: No significant pleural effusion identified, no pneumothorax apparent. CARDIOVASCULAR: Normal. OSSEOUS STRUCTURES: No significant abnormalities. VISUALIZED UPPER ABDOMEN: Normal. OTHER FINDINGS: None. IMPRESSION: Poor inspiration with low lung volumes, crowded bronchovascular markings and mild bibasilar atelectasis
--- NOTE | 2016-10-06 16:14 | CP.PCM.PN ---
<HENRY MILLER - Last Filed: 10/06/16 19:52> Subjective - Date & Time of Evaluation Date of Evaluation: 10/06/16 Time of Evaluation: 10:30 - Subjective Subjective: Medicine Progress Note: Pt was seen and assessed at bedside. Pt has no new complaints, per hospital director. Pt denies headache, changes in vision, chest pain, shortness of breath, cough, N /V, abdominal pain, diarrhea, or burning with urination. Objective - Vital Signs/Intake and Output Vital Signs (last 24 hours): Temp Pulse Resp BP Pulse Ox 97.7 F 73 16 96/58 L 97 10/06/16 12:00 10/06/16 14:00 10/06/16 12:00 10/06/16 12:00 10/06/16 06:00 Intake and Output: 10/06/16 10/06/16 06:59 18:59 Intake Total 240 Balance 240 - Medications Medications: Current Medications Aspirin (Ecotrin) 81 mg PO DAILY [facility] Last Admin: 10/06/16 09:45 Dose: 81 mg Doxycycline Hyclate (Doryx) 100 mg PO Q12 [facility] PRN Reason: Protocol Last Admin: 10/06/16 09:45 Dose: 100 mg Furosemide (Lasix) 40 mg PO DAILY [facility] Last Admin: 10/06/16 09:46 Dose: 40 mg Vancomycin HCl (Vancomycin 1gm) 1 gm in 250 mls @ 167 mls/hr IVPB DAILY [facility] PRN Reason: Protocol Last Admin: 10/06/16 11:30 Dose: 167 mls/hr Cefepime HCl (Maxipime 2gm) 2 gm in 100 mls @ 100 mls/hr IVPB Q12 [facility] PRN Reason: Protocol Stop: 10/11/16 10:01 Last Admin: 10/06/16 09:47 Dose: 100 mls/hr Lisinopril (Zestril) 5 mg PO DAILY [facility] Last Admin: 10/06/16 09:46 Dose: 5 mg Metoprolol Tartrate (Lopressor) 25 mg PO BID [facility] Last Admin: 10/06/16 09:47 Dose: 25 mg Spironolactone (Aldactone) 25 mg PO DAILY [facility] Last Admin: 10/06/16 09:46 Dose: 25 mg - Labs Labs: 10/06/16 07:46 10/06/16 07:46 PT 12.1 Seconds (9.9-11.8) H 10/05/16 16:40 INR 1.12 (0.93-1.08) H 10/05/16 16:40 APTT 28.0 Seconds (23.7-30.8) 10/05/16 16:40 - Constitutional Appears: No Acute Distress - Head Exam Head Exam: NORMAL INSPECTION - Eye Exam Eye Exam: EOMI, Normal appearance - ENT Exam ENT Exam: Mucous Membranes Moist, Normal Exam - Neck Exam Neck Exam: Full ROM - Respiratory Exam Respiratory Exam: Clear to Ausculation Bilateral, NORMAL BREATHING PATTERN. absent: Rales, Rhonchi, Wheezes - Cardiovascular Exam Cardiovascular Exam: REGULAR RHYTHM, +S1, +S2. absent: Murmur Additional comments: Lifevest in place - GI/Abdominal Exam GI & Abdominal Exam: Soft, Normal Bowel Sounds. absent: Tenderness - Extremities Exam Extremities Exam: absent: Calf Tenderness, Pedal Edema - Neurological Exam Neurological Exam: Alert, Awake, Oriented x3 - Psychiatric Exam Psychiatric exam: Normal Affect, Normal Mood - Skin Skin Exam: Dry, Intact, Normal Color, Warm Assessment and Plan - Assessment and Plan (Free Text) Assessment: Mr. Abhishek Joiner is a 56 year old male with a PMH of HTN, HLD and non- ischemic cardiomyopathy presented with shaking, chills, productive cough and fever. Plan: 1. Systemic Inflammatory Response Syndrome - WBC-18.8, fever of 103.1 on admission, procalcitonin 12.38, CRP >15, Flu swab negative, UA-negative for UTI - CXR: Poor inspiration with low lung volumes, crowded BV markings and mild bibasilar atelectasis - Cefepime 2gm, Doxy 100mg and Vancomycin 1gm for empiric coverage - ID consulted, all recs appreciated - Blood and Urine cultures negative X 24 hours - will follow up urine legionella Ag and sputum culture - cont to trend fever curve - monitor clinically 2. 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 GI/DVT Prophylaxis -Pepcid/SCD's Patient seen and case discussed in detail with attending, Dr. Cunningham. <Lawrence Cunningham - Last Filed: 10/07/16 15:37> Objective - Vital Signs/Intake and Output Vital Signs (last 24 hours): Temp Pulse Resp BP Pulse Ox 97 F L 48 L 20 111/67 97 10/07/16 11:52 10/07/16 14:00 10/07/16 11:52 10/07/16 11:52 10/07/16 06:00 Intake and Output: 10/07/16 10/07/16 06:59 18:59 Intake Total 520 Output Total 200 Balance 320 - Medications Medications: Current Medications Aspirin (Ecotrin) 81 mg PO DAILY [facility] Last Admin: 10/07/16 10:01 Dose: 81 mg Doxycycline Hyclate (Doryx) 100 mg PO Q12 [facility] PRN Reason: Protocol Last Admin: 10/07/16 10:02 Dose: 100 mg Enoxaparin Sodium (Lovenox) 70 mg SC Q12H [facility] PRN Reason: Protocol Last Admin: 10/07/16 13:52 Dose: 70 mg Famotidine (Pepcid) 40 mg PO HS [facility] Last Admin: 10/06/16 21:55 Dose: 40 mg Furosemide (Lasix) 40 mg PO DAILY [facility] Last Admin: 10/07/16 10:03 Dose: 40 mg Cefepime HCl (Maxipime 2gm) 2 gm in 100 mls @ 100 mls/hr IVPB Q12 [facility] PRN Reason: Protocol Stop: 10/11/16 10:01 Last Admin: 10/07/16 10:05 Dose: 100 mls/hr Lisinopril (Zestril) 5 mg PO DAILY [facility] Last Admin: 10/07/16 10:07 Dose: 5 mg Metoprolol Tartrate (Lopressor) 25 mg PO BID [facility] Last Admin: 10/07/16 10:04 Dose: 25 mg Spironolactone (Aldactone) 25 mg PO DAILY [facility] Last Admin: 10/07/16 10:01 Dose: 25 mg Warfarin Sodium (Coumadin) 5 mg PO 1800 [facility] PRN Reason: Protocol - Labs Labs: 10/07/16 06:00 10/07/16 06:00 PT 12.1 Seconds (9.9-11.8) H 10/05/16 16:40 INR 1.12 (0.93-1.08) H 10/05/16 16:40 APTT 28.0 Seconds (23.7-30.8) 10/05/16 16:40 Attending/Attestation - Attestation I have personally seen and examined this patient.: Yes I have fully participated in the care of the patient.: Yes I have reviewed all pertinent clinical information, including history, physical exam and plan: Yes Notes (Text): 10/07/16 15:26 attending note; Patient seen and examined with resident. Patient is a 56 year old male with a PMH of HTN, HLD and non-ischemic cardiomyopathy presented with shaking, chills, productive cough and fever. currently on doxycycline on Maxipime. Benton culture ordered. Chest x-ray is negative any significant infiltrate. Fever and chills improving. Cardiomyopathy; continue Life vest. Cardiology evaluation requested. patient is advised to complete medicaid paper work. Advised to follow up with [facility] for AICD evaluation if ejection fraction does not improve in 3 months. follow up with [facility]. 10/07/16 15:36
[2016-10-07 06:21] LABS: BASO # 0.02 K/mm3 (0.0-2.0); BASO % 0.2 % (0.0-3.0); EOS # 0.2 (0.0-0.7); EOS % 1.7 % (1.5-5.0); GRAN # 8.43 (1.4-6.5); GRAN % 66.6 % (50.0-68.0); HEMOGLOBIN 15.4 gm/dL (14.0-18.0); LYMPH % 23.3 % (22.0-35.0); MEAN CELL VOLUME 92.7 fL (80.0-105.0); MEAN CORPUSCULAR HEMOGLOBIN 32.2 pg (25.0-35.0); MEAN CORPUSCULAR HGB CONC 34.8 g/dl (31.0-37.0); MEAN PLATELET VOLUME 11.3 fl (7.0-11.0); MONO % 8.2 % (1.0-6.0); PLATELET COUNT 193 10^3/uL (120.0-450.0); RBC 4.78 10^6/uL (3.5-6.1); RED CELL DISTRIBUTION WIDTH 12.3 % (11.5-14.5); WHITE BLOOD COUNT 12.7 10^3/ul (4.5-11.0)
[2016-10-07 06:48] LABS: ALB/GLOB RATIO 1.2 (1.1-1.8); ALT/SGPT 26 U/L (7-56); AST/SGOT 27 U/L (15-59); BLOOD UREA NITROGEN 16 mg/dL (7-21); CALCIUM 9.6 mg/dL (8.4-10.5); GFR AFRICAN-AMERICAN > 60; GFR NON-AFRICAN AMERICAN 57
[2016-10-07] MEDS: Cefepime IV 2 gm in NS 2 GM/100 ML BAG IVPB SCH ×2 (10:05→21:30)
--- NOTE | 2016-10-07 13:36 | CP.PCM.PN ---
Subjective - Date & Time of Evaluation Date of Evaluation: 10/07/16 Time of Evaluation: 10:15 - Subjective Subjective: Comfortable in bed, not in distress, afebrile overnight, breathing better, still with cough. Objective - Vital Signs/Intake and Output Vital Signs (last 24 hours): Temp Pulse Resp BP Pulse Ox 97.1 F L 55 L 20 108/71 97 10/07/16 06:00 10/07/16 06:00 10/07/16 06:00 10/07/16 06:00 10/07/16 06:00 Intake and Output: 10/06/16 10/07/16 18:59 06:59 Intake Total 520 Output Total 200 Balance 320 - Medications Medications: Current Medications Aspirin (Ecotrin) 81 mg PO DAILY [facility] Last Admin: 10/06/16 09:45 Dose: 81 mg Doxycycline Hyclate (Doryx) 100 mg PO Q12 [facility] PRN Reason: Protocol Last Admin: 10/07/16 05:49 Dose: 100 mg Famotidine (Pepcid) 40 mg PO HS [facility] Last Admin: 10/06/16 21:55 Dose: 40 mg Furosemide (Lasix) 40 mg PO DAILY [facility] Last Admin: 10/06/16 09:46 Dose: 40 mg Cefepime HCl (Maxipime 2gm) 2 gm in 100 mls @ 100 mls/hr IVPB Q12 [facility] PRN Reason: Protocol Stop: 10/11/16 10:01 Last Admin: 10/06/16 21:54 Dose: 100 mls/hr Lisinopril (Zestril) 5 mg PO DAILY [facility] Last Admin: 10/06/16 09:46 Dose: 5 mg Metoprolol Tartrate (Lopressor) 25 mg PO BID [facility] Last Admin: 10/06/16 17:25 Dose: 25 mg Spironolactone (Aldactone) 25 mg PO DAILY [facility] Last Admin: 10/06/16 09:46 Dose: 25 mg - Labs Labs: 10/07/16 06:00 10/06/16 07:46 PT 12.1 Seconds (9.9-11.8) H 10/05/16 16:40 INR 1.12 (0.93-1.08) H 10/05/16 16:40 APTT 28.0 Seconds (23.7-30.8) 10/05/16 16:40 - Constitutional Appears: Non-toxic, No Acute Distress - Head Exam Head Exam: NORMAL INSPECTION - Neck Exam Neck Exam: absent: Lymphadenopathy, Meningismus - Respiratory Exam Respiratory Exam: Decreased Breath Sounds - Cardiovascular Exam Cardiovascular Exam: +S1, +S2 - GI/Abdominal Exam GI & Abdominal Exam: Soft. absent: Tenderness Assessment and Plan - Assessment and Plan (Free Text) Plan: Assessment Systemic Inflammatory Response Syndrome, R/O sepsis due to healthcare- associated pneumonia non-ischemic cardiomyopathy with life vest in place (EF 15%) HTN dyslipidemia chronic CHF Plan blood cx (-) x 1 day; follow up sputum cx; urine Legionella Ag is negative, PCT is elevated at 12.38 but the patient has some renal failure; CXR shows low lung volumes Continue Cefepime and Doxycycline day 2 will continue to monitor clinically
[2016-10-07] MEDS: Enoxaparin 80 mg Syringe SC SCH (13:52)
--- NOTE | 2016-10-07 16:57 | CP.PCM.PN ---
<ShakilaEdilberto - Last Filed: 10/07/16 17:11> Subjective - Date & Time of Evaluation Date of Evaluation: 10/07/16 Time of Evaluation: 10:45 - Subjective Subjective: Pt s&e at bedside. Pt has no new complaints, per sports book board attendant. Pt denies headache , changes in vision, chest pain, shortness of breath, cough, N/V, abdominal pain , diarrhea, or burning with urination. Spoke to patient's daughter regarding insurance information, and to inform her that Mr. Weiss needs to follow up at a major medical center. Objective - Vital Signs/Intake and Output Vital Signs (last 24 hours): Temp Pulse Resp BP Pulse Ox 97 F L 48 L 20 111/67 97 10/07/16 11:52 10/07/16 14:00 10/07/16 11:52 10/07/16 11:52 10/07/16 06:00 Intake and Output: 10/07/16 10/07/16 06:59 18:59 Intake Total 520 Output Total 200 Balance 320 - Medications Medications: Current Medications Aspirin (Ecotrin) 81 mg PO DAILY [facility] Last Admin: 10/07/16 10:01 Dose: 81 mg Doxycycline Hyclate (Doryx) 100 mg PO Q12 [facility] PRN Reason: Protocol Last Admin: 10/07/16 10:02 Dose: 100 mg Enoxaparin Sodium (Lovenox) 70 mg SC Q12H [facility] PRN Reason: Protocol Last Admin: 10/07/16 13:52 Dose: 70 mg Famotidine (Pepcid) 40 mg PO HS [facility] Last Admin: 10/06/16 21:55 Dose: 40 mg Furosemide (Lasix) 40 mg PO DAILY [facility] Last Admin: 10/07/16 10:03 Dose: 40 mg Cefepime HCl (Maxipime 2gm) 2 gm in 100 mls @ 100 mls/hr IVPB Q12 [facility] PRN Reason: Protocol Stop: 10/11/16 10:01 Last Admin: 10/07/16 10:05 Dose: 100 mls/hr Lisinopril (Zestril) 5 mg PO DAILY [facility] Last Admin: 10/07/16 10:07 Dose: 5 mg Metoprolol Tartrate (Lopressor) 25 mg PO BID [facility] Last Admin: 07/17/17 10:04 Dose: 25 mg Spironolactone (Aldactone) 25 mg PO DAILY [facility] Last Admin: 10/07/16 10:01 Dose: 25 mg Warfarin Sodium (Coumadin) 5 mg PO 1800 [facility] PRN Reason: Protocol - Labs Labs: 10/07/16 06:00 10/07/16 06:00 PT 12.1 Seconds (9.9-11.8) H 10/05/16 16:40 INR 1.12 (0.93-1.08) H 10/05/16 16:40 APTT 28.0 Seconds (23.7-30.8) 10/05/16 16:40 - Additional Findings Additional findings: Physical Exam: VS as below Constitutional: a&o x 4, nad Head and Neck: neck supple, no jvd, trachea midline, carotid midline, no cervical/head mass Eyes: donya, nonicteric sclera, eom intact ENT: auditory acuity grossly intact, throat not congested, no nasal deformity Cardio: rrr, no m/r/g, no carotid bruit, nml s1, s2 Pulm: no accessory muscle use, equal nml breath sounds bilaterally, ctab Abd:; s/nt/nd, nbs x 4 q, no palpable masses Derm: +diaphoretic; no rashes, no ulcers, no lesions Extr: no edema, no cyanosis, no calf tenderness, no lesions, no varicosities Neuro: cn II-XII grossly intact Assessment and Plan - Assessment and Plan (Free Text) Assessment: Mr. Abhishek Joiner is a 56 year old male with a PMH of HTN, HLD and non- ischemic cardiomyopathy presented with shaking, chills, productive cough and fever. Plan: 1. Systemic Inflammatory Response Syndrome - resolving - WBC-18.8, fever of 103.1 on admission, procalcitonin 12.38, CRP >15, Flu swab negative, UA-negative for UTI; White Count Resolving - CXR: Poor inspiration with low lung volumes, crowded BV markings and mild bibasilar atelectasis - Cefepime 2gm, Doxy 100mg and Vancomycin 1gm for empiric coverage - ID consulted, all recs appreciated - Blood and Urine cultures negative X 24 hours - Negative urine legionella Ag and sputum culture - cont to trend fever curve - monitor clinically 2. Non-ischemic Cardiomyopathy - cardiology consulted, all recs appreciated - old echo showing EF of 15% - ECG: sinus bradycardia with possible minimal voltage criteria LVH - on exam, patient was not wearing lifevest, he was charging it - advised him to keep it charged - cont ASA, Lasix, Lisinopril, Lopressor, and Aldactone - personnel monitor - heart healthy diet 3. GI/DVT Prophylaxis -Pepcid/SCD's Patient seen and case discussed in detail with attending, Dr. Cunningham. <Lawrence Cunningham - Last Filed: 10/08/16 16:50> Objective - Vital Signs/Intake and Output Vital Signs (last 24 hours): Temp Pulse Resp BP Pulse Ox 96.7 F L 92 H 20 107/73 99 10/08/16 11:47 10/08/16 11:47 10/08/16 11:47 10/08/16 11:47 10/08/16 05:40 Intake and Output: 10/08/16 10/08/16 06:59 18:59 Intake Total 100 1440 Balance 100 1440 - Labs Labs: 10/08/16 06:00 10/08/16 06:00 PT 11.0 Seconds (9.9-11.8) 10/08/16 08:00 INR 1.02 (0.93-1.08) 10/08/16 08:00 APTT 28.0 Seconds (23.7-30.8) 10/05/16 16:40 Attending/Attestation - Attestation I have personally seen and examined this patient.: Yes I have fully participated in the care of the patient.: Yes I have reviewed all pertinent clinical information, including history, physical exam and plan: Yes Notes (Text): 10/08/16 16:49 attending note; Patient seen and examined with resident. Patient is a 56 year old male with a PMH of HTN, HLD and non-ischemic cardiomyopathy presented with shaking, chills, productive cough and fever. currently on doxycycline on Maxipime. Benton culture ordered. Chest x-ray is negative any significant infiltrate. Fever and chills improved. Cardiomyopathy; continue Life vest. Cardiology evaluation with appreciated. Started on Coumadin. Needs INR follow-up at [facility]. patient is advised to complete medicaid paper work. Advised to follow up with [facility] for AICD evaluation if ejection fraction does not improve in 3 months. follow up with [facility].
[2016-10-08] MEDS: Enoxaparin 80 mg Syringe SC SCH (01:55)
--- NOTE | 2016-10-08 02:11 | CON ---
DATE: 10/07/2016 REASON FOR CONSULTATION: Cardiomyopathy as well as fever and chills. HISTORY OF PRESENT ILLNESS: The patient is a 56 years old Fredis male who has history of hypertension, hyperlipidemia, and nonischemic cardiomyopathy underwent recently cardiac catheterization that revealed unremarkable coronary artery circulation. The patient had an external vest placement and was discharged home on medical therapy. The patient presents because of fever and chills. The patient has a flu-like symptoms, experiencing sore throat and cough. SOCIAL HISTORY: The patient is a nonsmoker. MEDICATIONS: Aldactone 25 mg once a day, doxycycline 100 mg orally twice a day, aspirin 81 mg once a day, Lasix 20 mg once a day, Lopressor 25 mg twice a day, IV Maxipime at 2 g twice a day, lisinopril at 5 mg once a day. PHYSICAL EXAMINATION: GENERAL: The patient is a middle-aged male who does not appear to be in any distress. VITAL SIGNS: Blood pressure 111/67, heart rate 68, temperature 97, respirations 20. HEENT: Normocephalic. CHEST: Clear. HEART: S1 and S2 regular. S3 gallop is noted. ABDOMEN: Soft. EXTREMITIES: No edema. LABORATORY DATA: Hemoglobin and hematocrit 15.4 and 44.3, white count 12.7, platelet count 193,000. Admitting white count was 17.1. INR is 1.12, PTT is within normal limits. SMA-7 is within normal limits. One set troponin is negative. Procalcitonin is 12.38. Urine; pneumophila antigen is negative. Influenza type A and B serology is negative. Blood culture is negative after 24 hours. ASSESSMENT: 1. Hypertensive cardiomyopathy. 2. Hyperlipidemia. 3. Rule out underlying sepsis. RECOMMENDATIONS: reviewed infectious disease consultation. I would recommend his followup blood and sputum culture. In the meantime, the case was discussed with medical team, Dr. Cunningham and the residents. Continue oral Lasix, Aldactone and lisinopril. Start therapeutic subcutaneous Lovenox for now. Jeronimo Warner MD
[2016-10-08 02:55] VITALS: O2SAT 99
[2016-10-08 06:11] LABS: BASO # 0.04 K/mm3 (0.0-2.0); BASO % 0.6 % (0.0-3.0); EOS # 0.2 (0.0-0.7); EOS % 3.6 % (1.5-5.0); GRAN # 3.07 (1.4-6.5); GRAN % 46.4 % (50.0-68.0); HEMOGLOBIN 15.3 gm/dL (14.0-18.0); LYMPH # 2.6 (1.2-3.4); LYMPH % 39.7 % (22.0-35.0); MEAN CELL VOLUME 90.8 fL (80.0-105.0); MEAN CORPUSCULAR HGB CONC 35.3 g/dl (31.0-37.0); MEAN PLATELET VOLUME 11.4 fl (7.0-11.0); MONO # 0.6 (0.1-0.6); MONO % 9.7 % (1.0-6.0); PLATELET COUNT 221 10^3/uL (120.0-450.0); RBC 4.78 10^6/uL (3.5-6.1); RED CELL DISTRIBUTION WIDTH 11.9 % (11.5-14.5); WHITE BLOOD COUNT 6.6 10^3/ul (4.5-11.0)
[2016-10-08 06:24] LABS: ALB/GLOB RATIO 1.2 (1.1-1.8); ALT/SGPT 33 U/L (7-56); AST/SGOT 43 U/L (15-59); BLOOD UREA NITROGEN 20 mg/dL (7-21); CALCIUM 9.9 mg/dL (8.4-10.5); GFR AFRICAN-AMERICAN > 60; GFR NON-AFRICAN AMERICAN 57
[2016-10-08 08:04] LABS: URINE BILIRUBIN NEGATIVE (NEGATIVE); URINE BLOOD TRACE-INTACT (NEGATIVE); URINE GLUCOSE (UA) NEGATIVE (NEGATIVE); URINE LEUKOCYTE ESTERASE NEGATIVE Leu/uL (NEGATIVE); URINE NITRATE NEGATIVE (NEGATIVE); URINE PROTEIN NEGATIVE mg/dL (<30 mg/dL); URINE UROBILINOGEN 0.2 E.U./dL (<1 E.U./dL)
[2016-10-08 08:06] LABS: URINE APPEARANCE CLEAR (CLEAR); URINE COLOR YELLOW (YELLOW)
[2016-10-08 08:14] LABS: URINE BACTERIA NEG (NEG); URINE EPITHELIAL CELLS 0 - 2 /hpf (0-5); URINE RBC 0 - 2 /hpf (0-2); URINE WBC NEGATIVE /hpf (0-6)
[2016-10-08] MEDS: Cefepime IV 2 gm in NS 2 GM/100 ML BAG IVPB SCH (09:22)
[2016-10-08 09:51] LABS: INR 1.02 (0.93-1.08)
[2016-10-08 11:48] VITALS: BP 107/73; PULSE 92; RESP 20; TEMP 96.7
--- NOTE | 2016-10-08 17:31 | PN ---
DATE: 10/08/2016 SUBJECTIVE: The patient seen in bed in no acute distress, nontoxic, who was seen early this morning in room 264. PHYSICAL EXAMINATION: VITAL SIGNS: Temperature is 97, blood pressure is 103/70 and respiratory rate of 16. HEENT: Unremarkable. NECK: Supple. LUNGS: Decreased breath sounds. HEART: Normal S1 and S2. ABDOMEN: Soft and nontender. LABORATORY DATA: Reveals the patient's white count is 6.6, hemoglobin of 15, and platelets of 221. Chemistries reveals BUN of 20 and creatinine of 1.3. Urinalysis is noted and serology is reviewed. Urine for Legionella is negative. Microbiology reveals blood culture is no growth. Urine culture is no growth. Sputum culture is no growth. Procalcitonin is reported to be a 12.38. The patient's chest x-ray is reviewed. The patient's orders reveals the patient to be on p.o. doxycycline and IV cefepime. ASSESSMENT AND PLAN: A 56-year-old male with systemic inflammatory response syndrome, possibly healthcare-associated pneumonia, nonischemic cardiomyopathy with a LifeVest in place with ejection fraction of 15% in a patient with hypertension with negative rivas cultures and also an elevated procalcitonin. We will discontinue the cefepime and complete the 7 days of doxycycline and p.o. Vantin 200 mg p.o. b.i.d. x7 days. Angel Gomez MD cc:
--- NOTE | 2016-10-08 18:37 | CP.PCM.DIS ---
<Edilberto Jhaveri - Last Filed: 10/08/16 18:39> Provider - Provider Date of Admission: 10/05/16 19:05 Attending physician: Lawrence Cunningham MD Primary care physician: NO PRIMARY CARE PROVIDER Time Spent in preparation of Discharge (in minutes): 45 Hospital Course - Lab Results Lab Results: Micro Results 10/06/16 16:00 Sputum Gram Stain - Final 10/06/16 16:00 Sputum Sputum Culture - Final NORMAL ORAL JORDAN Most Recent Lab Values WBC 6.6 10^3/ul (4.5-11.0) D 10/08/16 06:00 RBC 4.78 10^6/uL (3.5-6.1) 10/08/16 06:00 Hgb 15.3 gm/dL (14.0-18.0) 10/08/16 06:00 Hct 43.4 % (42.0-52.0) 10/08/16 06:00 MCV 90.8 fL (80.0-105.0) 10/08/16 06:00 MCH 32.0 pg (25.0-35.0) 10/08/16 06:00 MCHC 35.3 g/dl (31.0-37.0) 10/08/16 06:00 RDW 11.9 % (11.5-14.5) 10/08/16 06:00 Plt Count 221 10^3/uL (120.0-450.0) 10/08/16 06:00 MPV 11.4 fl (7.0-11.0) H 10/08/16 06:00 Gran % 46.4 % (50.0-68.0) L 10/08/16 06:00 Lymph % (Auto) 39.7 % (22.0-35.0) H 10/08/16 06:00 Person % (Auto) 9.7 % (1.0-6.0) H 10/08/16 06:00 Eos % (Auto) 3.6 % (1.5-5.0) 10/08/16 06:00 Baso % (Auto) 0.6 % (0.0-3.0) 10/08/16 06:00 Gran # 3.07 (1.4-6.5) 10/08/16 06:00 Lymph # 2.6 (1.2-3.4) 10/08/16 06:00 Person # 0.6 (0.1-0.6) 10/08/16 06:00 Eos # 0.2 (0.0-0.7) 10/08/16 06:00 Baso # 0.04 K/mm3 (0.0-2.0) 10/08/16 06:00 ESR 15 mm/hr (0.00-15.0) 10/05/16 16:40 PT 11.0 Seconds (9.9-11.8) 10/08/16 08:00 INR 1.02 (0.93-1.08) 10/08/16 08:00 APTT 28.0 Seconds (23.7-30.8) 10/05/16 16:40 pO2 38 mm/Hg (30-55) 10/05/16 16:40 VBG pH 7.43 (7.32-7.43) 10/05/16 16:40 VBG pCO2 44.0 (40-60) 10/05/16 16:40 VBG HCO3 29.2 mmol/l (21-28) H 10/05/16 16:40 VBG Total CO2 30.6 mmol.L (22-28) H 10/05/16 16:40 VBG O2 Sat (Calc) 80.3 % (40-65) H 10/05/16 16:40 VBG Base Excess 4.1 mmol/L (0.0-2.0) H 10/05/16 16:40 VBG Potassium 4.3 mmol/L (3.6-5.2) 10/05/16 16:40 Sodium 136.0 mmol/L (132-148) 10/05/16 16:40 Chloride 100.0 mmol/L (98-107) 10/05/16 16:40 Glucose 111 mg/dl (75-110) H 10/05/16 16:40 Lactate 1.2 mmol/L (0.7-2.1) 10/05/16 16:40 FiO2 21.0 % 10/05/16 16:40 Sodium 143 mmol/L (132-148) 10/08/16 06:00 Potassium 5.1 mmol/L (3.6-5.0) H 10/08/16 06:00 Chloride 104 mmol/L (95-110) 10/08/16 06:00 Carbon Dioxide 30 mmol/L (21-33) 10/08/16 06:00 Anion Gap 14 (10-20) 10/08/16 06:00 BUN 20 mg/dL (7-21) 10/08/16 06:00 Creatinine 1.3 mg/dL (0.5-1.4) 10/08/16 06:00 Est GFR ( Amer) > 60 10/08/16 06:00 Est GFR (Non-Af Amer) 57 10/08/16 06:00 Random Glucose 93 mg/dL (70-110) 10/08/16 06:00 Calcium 9.9 mg/dL (8.4-10.5) 10/08/16 06:00 Phosphorus 4.2 mg/dL (2.5-4.5) 10/05/16 16:40 Magnesium 1.8 mg/dL (1.7-2.2) 10/05/16 16:40 Total Bilirubin 0.6 mg/dL (0.2-1.3) 10/08/16 06:00 AST 43 U/L (15-59) 10/08/16 06:00 ALT 33 U/L (7-56) 10/08/16 06:00 Alkaline Phosphatase 60 U/L (38-133) 10/08/16 06:00 Lactate Dehydrogenase 395 U/L (333-699) 10/05/16 16:40 Total Creatine Kinase 89 U/L (35-230) 10/05/16 16:40 Troponin I < 0.01 ng/mL 10/05/16 16:40 C-React Prot High Sens > 15.00 mg/L (1.00-3.00) H 10/05/16 16:40 NT-Pro-B Natriuret Pep 2130 pg/mL (0-450) H 10/05/16 16:40 Total Protein 7.4 g/dL (5.8-8.3) 10/08/16 06:00 Albumin 4.0 g/dL (3.0-4.8) 10/08/16 06:00 Globulin 3.4 gm/dL 10/08/16 06:00 Albumin/Globulin Ratio 1.2 (1.1-1.8) 10/08/16 06:00 Lipase 48 U/L (23-300) 10/05/16 16:40 Procalcitonin 12.38 NG/ML (0.19-0.49) H 10/05/16 16:40 Venous Blood Potassium 4.3 mmol/L (3.6-5.2) 10/05/16 16:40 Urine Color Yellow (YELLOW) 10/08/16 07:30 Urine Appearance Clear (CLEAR) 10/08/16 07:30 Urine pH 6.0 (4.7-8.0) 10/08/16 07:30 Ur Specific [place] 1.015 (1.005-1.035) 10/08/16 07:30 Urine Protein Negative mg/dL (<30 mg/dL) 10/08/16 07:30 Urine Glucose (UA) Negative mg/dL (NEGATIVE) 10/08/16 07:30 Urine Ketones Negative mg/dL (NEGATIVE) 10/08/16 07:30 Urine Blood Trace-intact (NEGATIVE) H 10/08/16 07:30 Urine Nitrate Negative (NEGATIVE) 10/08/16 07:30 Urine Bilirubin Negative (NEGATIVE) 10/08/16 07:30 Urine Urobilinogen 0.2 E.U./dL (<1 E.U./dL) 10/08/16 07:30 Ur Leukocyte Esterase Negative Neo/uL (NEGATIVE) 10/08/16 07:30 Urine RBC 0 - 2 /hpf (0-2) 10/08/16 07:30 Urine WBC Negative /hpf (0-6) 10/08/16 07:30 Ur Epithelial Cells 0 - 2 /hpf (0-5) 10/08/16 07:30 Amorphous Sediment Moderate 10/05/16 16:40 Urine Bacteria Neg (NEG) 10/08/16 07:30 Influenza Typ A,B (EIA) Negative for flu a/b (NEGATIVE) 10/06/16 12:06 Ur L.pneumophila Ag Negative (NEGATIVE) 10/06/16 16:00 - Hospital Course Hospital Course: This is a 56yo [place] Speaking M from the who came in for acute SOB. The patient complained of a dry hacking cough for the past 2 months, weight loss that is unintentional and night sweats. He denied fevers/chills, ARREOLA, CP, abdominal pain, N/V/D, dysuria/freq/urg, or lower extremity swelling. Patient's symptoms resolved within 3 days, and he had no further complaints. He was advised to follow up at a major medical center for his CHF. - Date & Time of H&P Date of H&P: 10/05/16 Time of H&P: 23:50 Discharge Exam - Head Exam Head Exam: NORMAL INSPECTION - Additional Findings Additional findings: VS as below Constitutional: a&o x 4, nad Head and Neck: neck supple, no jvd, trachea midline, carotid midline, no cervical/head mass Eyes: donya, nonicteric sclera, eom intact ENT: auditory acuity grossly intact, throat not congested, no nasal deformity Cardio: rrr, no m/r/g, no carotid bruit, nml s1, s2 Pulm: no accessory muscle use, equal nml breath sounds bilaterally, ctab Abd:; s/nt/nd, nbs x 4 q, no palpable masses Derm: +diaphoresis resolved from prior; no rashes, no ulcers, no lesions Extr: no edema, no cyanosis, no calf tenderness, no lesions, no varicosities Neuro: cn II-XII grossly intact Discharge Plan - Discharge Medications Prescriptions: Cefpodoxime [Vantin] 200 mg PO Q12 #14 tab Doxycycline Hyclate [Doryx] 100 mg PO Q12 #14 cap Warfarin [Coumadin] 5 mg PO 1800 #5 tab - Follow Up Plan Condition: FAIR Disposition: HOME/ ROUTINE Instructions: Warfarin (By mouth), Heart Failure (DC), Heart Failure (GEN), Chest Pain (DC), Chest Pain (GEN), Pacemaker (DC), Pacemaker (GEN), Pulmonary Edema (DC), Pulmonary Edema (GEN), Sepsis (ED), Ascites (DC), Ascites (GEN) Additional Instructions: 1. F/u next Friday, October 14,for labs - PT/PTT/CBC/CMP/INR 2. Take medications as prescribed. 3. Follow up with Cardiology DR. Warner. 4. Follow up with [employer] DR. Clemente. Continue life vest. 5. Follow up with [facility] Wilson for possible AICD placement if EF does not improve. 3. Please go to ED if symptoms persist or get worse Referrals: PCP,NO [Primary Care Provider] - <Lawrence Cunningham - Last Filed: 10/12/16 10:58> Provider - Provider Date of Admission: 10/05/16 19:05 Attending physician: Lawrence Cunningham MD Primary care physician: NO PRIMARY CARE PROVIDER Hospital Course - Lab Results Lab Results: Micro Results 10/06/16 16:00 Sputum Gram Stain - Final 10/06/16 16:00 Sputum Sputum Culture - Final NORMAL ORAL JORDAN Most Recent Lab Values WBC 6.6 10^3/ul (4.5-11.0) D 10/08/16 06:00 RBC 4.78 10^6/uL (3.5-6.1) 10/08/16 06:00 Hgb 15.3 gm/dL (14.0-18.0) 10/08/16 06:00 Hct 43.4 % (42.0-52.0) 10/08/16 06:00 MCV 90.8 fL (80.0-105.0) 10/08/16 06:00 MCH 32.0 pg (25.0-35.0) 10/08/16 06:00 MCHC 35.3 g/dl (31.0-37.0) 10/08/16 06:00 RDW 11.9 % (11.5-14.5) 10/08/16 06:00 Plt Count 221 10^3/uL (120.0-450.0) 10/08/16 06:00 MPV 11.4 fl (7.0-11.0) H 10/08/16 06:00 Gran % 46.4 % (50.0-68.0) L 10/08/16 06:00 Lymph % (Auto) 39.7 % (22.0-35.0) H 10/08/16 06:00 Person % (Auto) 9.7 % (1.0-6.0) H 10/08/16 06:00 Eos % (Auto) 3.6 % (1.5-5.0) 10/08/16 06:00 Baso % (Auto) 0.6 % (0.0-3.0) 10/08/16 06:00 Gran # 3.07 (1.4-6.5) 10/08/16 06:00 Lymph # 2.6 (1.2-3.4) 10/08/16 06:00 Person # 0.6 (0.1-0.6) 10/08/16 06:00 Eos # 0.2 (0.0-0.7) 10/08/16 06:00 Baso # 0.04 K/mm3 (0.0-2.0) 10/08/16 06:00 ESR 15 mm/hr (0.00-15.0) 10/05/16 16:40 PT 11.0 Seconds (9.9-11.8) 10/08/16 08:00 INR 1.02 (0.93-1.08) 10/08/16 08:00 APTT 28.0 Seconds (23.7-30.8) 10/05/16 16:40 pO2 38 mm/Hg (30-55) 10/05/16 16:40 VBG pH 7.43 (7.32-7.43) 10/05/16 16:40 VBG pCO2 44.0 (40-60) 10/05/16 16:40 VBG HCO3 29.2 mmol/l (21-28) H 10/05/16 16:40 VBG Total CO2 30.6 mmol.L (22-28) H 10/05/16 16:40 VBG O2 Sat (Calc) 80.3 % (40-65) H 10/05/16 16:40 VBG Base Excess 4.1 mmol/L (0.0-2.0) H 10/05/16 16:40 VBG Potassium 4.3 mmol/L (3.6-5.2) 10/05/16 16:40 Sodium 136.0 mmol/L (132-148) 10/05/16 16:40 Chloride 100.0 mmol/L (98-107) 10/05/16 16:40 Glucose 111 mg/dl (75-110) H 10/05/16 16:40 Lactate 1.2 mmol/L (0.7-2.1) 10/05/16 16:40 FiO2 21.0 % 10/05/16 16:40 Sodium 143 mmol/L (132-148) 10/08/16 06:00 Potassium 5.1 mmol/L (3.6-5.0) H 10/08/16 06:00 Chloride 104 mmol/L (95-110) 10/08/16 06:00 Carbon Dioxide 30 mmol/L (21-33) 10/08/16 06:00 Anion Gap 14 (10-20) 10/08/16 06:00 BUN 20 mg/dL (7-21) 10/08/16 06:00 Creatinine 1.3 mg/dL (0.5-1.4) 10/08/16 06:00 Est GFR ( Amer) > 60 10/08/16 06:00 Est GFR (Non-Af Amer) 57 10/08/16 06:00 Random Glucose 93 mg/dL (70-110) 10/08/16 06:00 Calcium 9.9 mg/dL (8.4-10.5) 10/08/16 06:00 Phosphorus 4.2 mg/dL (2.5-4.5) 10/05/16 16:40 Magnesium 1.8 mg/dL (1.7-2.2) 10/05/16 16:40 Total Bilirubin 0.6 mg/dL (0.2-1.3) 10/08/16 06:00 AST 43 U/L (15-59) 10/08/16 06:00 ALT 33 U/L (7-56) 10/08/16 06:00 Alkaline Phosphatase 60 U/L (38-133) 10/08/16 06:00 Lactate Dehydrogenase 395 U/L (333-699) 10/05/16 16:40 Total Creatine Kinase 89 U/L (35-230) 10/05/16 16:40 Troponin I < 0.01 ng/mL 10/05/16 16:40 C-React Prot High Sens > 15.00 mg/L (1.00-3.00) H 10/05/16 16:40 NT-Pro-B Natriuret Pep 2130 pg/mL (0-450) H 10/05/16 16:40 Total Protein 7.4 g/dL (5.8-8.3) 10/08/16 06:00 Albumin 4.0 g/dL (3.0-4.8) 10/08/16 06:00 Globulin 3.4 gm/dL 10/08/16 06:00 Albumin/Globulin Ratio 1.2 (1.1-1.8) 10/08/16 06:00 Lipase 48 U/L (23-300) 10/05/16 16:40 Procalcitonin 12.38 NG/ML (0.19-0.49) H 10/05/16 16:40 Venous Blood Potassium 4.3 mmol/L (3.6-5.2) 10/05/16 16:40 Urine Color Yellow (YELLOW) 10/08/16 07:30 Urine Appearance Clear (CLEAR) 10/08/16 07:30 Urine pH 6.0 (4.7-8.0) 10/08/16 07:30 Ur Specific [place] 1.015 (1.005-1.035) 10/08/16 07:30 Urine Protein Negative mg/dL (<30 mg/dL) 10/08/16 07:30 Urine Glucose (UA) Negative mg/dL (NEGATIVE) 10/08/16 07:30 Urine Ketones Negative mg/dL (NEGATIVE) 10/08/16 07:30 Urine Blood Trace-intact (NEGATIVE) H 10/08/16 07:30 Urine Nitrate Negative (NEGATIVE) 10/08/16 07:30 Urine Bilirubin Negative (NEGATIVE) 10/08/16 07:30 Urine Urobilinogen 0.2 E.U./dL (<1 E.U./dL) 10/08/16 07:30 Ur Leukocyte Esterase Negative Neo/uL (NEGATIVE) 10/08/16 07:30 Urine RBC 0 - 2 /hpf (0-2) 10/08/16 07:30 Urine WBC Negative /hpf (0-6) 10/08/16 07:30 Ur Epithelial Cells 0 - 2 /hpf (0-5) 10/08/16 07:30 Amorphous Sediment Moderate 10/05/16 16:40 Urine Bacteria Neg (NEG) 10/08/16 07:30 Influenza Typ A,B (EIA) Negative for flu a/b (NEGATIVE) 10/06/16 12:06 Ur L.pneumophila Ag Negative (NEGATIVE) 10/06/16 16:00 Attending/Attestation - Attestation I have personally seen and examined this patient.: Yes I have fully participated in the care of the patient.: Yes I have reviewed all pertinent clinical information, including history, physical exam and plan: Yes Notes (Text): 07/22/17 10:55 attending note; Patient seen and examined with resident. Patient is a 56 year old male with a PMH of HTN, HLD and non-ischemic cardiomyopathy presented with shaking, chills, productive cough and fever. Treated with doxycycline on Maxipime. [place] culture ordered. Chest x-ray is negative any significant infiltrate. Fever and chills improved. Cardiomyopathy; continue Life vest. Cardiology evaluation with appreciated. Started on Coumadin. Needs INR follow-up at [facility] clinic. patient is advised to complete medicaid paper work. Advised to follow up with rosita Wilson for AICD evaluation if ejection fraction does not improve in 3 months. follow up with [facility] clinc. diagnosis; cardiomyopathy life vest hyperlipidemia
[2016-10-08] MEDS ORDERED: Cefpodoxime (Vantin) 200 mg Tab PO SCH (22:00)
--- NOTE | 2016-10-09 02:35 | PN ---
DATE: SUBJECTIVE: The patient is still experiencing cough and sore throat. PHYSICAL EXAMINATION: VITAL SIGNS: Blood pressure 107/73, heart rate 92, temperature 96.7, respirations 20. HEENT: Normocephalic. CHEST: Clear. HEART: S1 and S2 regular. EXTREMITIES: No edema. LABORATORY DATA: Today SMA-7 is within normal limit except for potassium of 5.1. Hemoglobin, hematocrit, white count and platelet count are within normal limits. Blood culture is negative after 48 hours. ASSESSMENT: 1. Cardiomyopathy. 2. Rule out underlying sepsis. 3. Hypertension. RECOMMENDATIONS: Continue current Aldactone, Coumadin, oral doxycycline, aspirin, Lopressor, Vistaril and subcutaneous Lovenox. Jeronimo Warner MD
== END 2016-10-08 14:52 | disposition home or self-care (01) | DRG 541 ==
LOC: ED 15:22 → ERH 19:05 → 2RNO 10-06 00:08
PROVIDERS: ADMIT Internal Medicine; ATTEND Internal Medicine
DX: J18.9 Pneumonia, unspecified organism (principal); R65.10 Systemic inflammatory response syndrome (SIRS) of non-infectious origin without acute organ dysfunction; I11.0 Hypertensive heart disease with heart failure; I43 Cardiomyopathy in diseases classified elsewhere; I50.9 Heart failure, unspecified; Y95 Nosocomial condition; E78.5 Hyperlipidemia, unspecified; Z72.89 Other problems related to lifestyle; E78.00 Pure hypercholesterolemia, unspecified; Z87.891 Personal history of nicotine dependence; R63.4 Abnormal weight loss; R61 Generalized hyperhidrosis; Z79.82 Long term (current) use of aspirin; R00.1 Bradycardia, unspecified